=== PATIENT | male | born 1975 | race Two or more races ===

== ENCOUNTER 2016-11-30 09:51 | Inpatient (IN) | payer MEDICAID ==
[~2016-11-30] VITALS: Ht 165 cm; Wt 104.8 kg
[2016-11-30 10:42] VITALS: BP 112/70
[2016-11-30] MEDS ORDERED: cefOXitin Sod 2 GM in D5W 110 ML IVPB SCH (13:00)
[2016-11-30] MEDS ORDERED: Morphine Sulfate 4mg/ml Inj IVP ONE (13:00)
[2016-11-30] MEDS ORDERED: cefOXitin 2gm Inj ONE (13:09)
[2016-11-30 13:32] LABS: BASOPHILS % (AUTO) 0.4 % (0.0-2.0); EOSINOPHILS % (AUTO) 0.3 % (0.0-3.0); LYMPHOCYTES % (AUTO) 9.4 % (20.0-45.0); MEAN CORPUSCULAR HEMOGLOBIN 31.7 PG (27.0-31.0); MEAN CORPUSCULAR HGB CONC 33.5 G/DL (32.0-36.0); MEAN CORPUSCULAR VOLUME 95 FL (80-99); NEUTROPHILS % (AUTO) 74.9 % (45.0-75.0); PLATELET COUNT 160 K/UL (150-450); RED BLOOD COUNT 4.19 M/UL (4.70-6.10); RED CELL DISTRIBUTION WIDTH 11.2 % (11.6-14.8); WHITE BLOOD COUNT 17.4 K/UL (4.8-10.8)
[2016-11-30 13:39] LABS: INR 1.1 (0.9-1.1); PROTHROMBIN TIME 11.7 SEC (9.30-11.50)
[2016-11-30 13:43] VITALS: BP 114/68
[2016-11-30 13:43] LABS: ALBUMIN/GLOBULIN RATIO 1.1 (1.0-2.7); CALCIUM 9.3 mg/dL (8.6-10.2); CREATININE 1.8 mg/dL (0.7-1.2); GLOMERULAR FILTRATION RATE 42.2 mL/min (>60); POTASSIUM 4.9 mEQ/L (3.4-4.9); TOTAL PROTEIN 7.1 g/dL (6.6-8.7)
[2016-11-30] MEDS ORDERED: Nitroglycerin Subl 0.4mg tab (Bottle Of 25) SL PRN ×2 (13:45→17:45)
[2016-11-30] MEDS ORDERED: Vancomycin 1 GM in D5W 275 ML IVPB ONE (14:30)
[2016-11-30] MEDS ORDERED: metroNIDAZOLE 500mg 100 ML IVPB ONE (14:30)
--- NOTE | 2016-11-30 15:00 | Diagnostic Imaging Report ---
Clinical Indication: Pubic area pain Technique: No oral contrast utilized, per emergency room physician request IV administration nonionic contrast. Venous phase spiral acquisition obtained through the abdomen and pelvis. Multiplanar reconstructions were generated. Total dose length product 1136 mGycm. CTDIvol(s) 19 mGy. Dose reduction achieved using automated exposure control Comparison: None Findings: The skin and subcutaneous fat of the pubic area are essentially unremarkable. No evidence of significant infiltration of the subcutaneous fat noted. No abnormal fluid collections are evident. There is a right iliac fossa transplant kidney. This demonstrates moderate hydronephrosis. The transplant ureter is mildly dilated upstream, less so downstream. It opacifies normally. No focal abnormality is demonstrated. There are subcentimeter low-attenuation lesions which are too small to characterize. There are surgical clips seen surrounding the kidney. The bladder demonstrates an unusual elongated configuration. There is equivocal minimal bladder wall thickening. There is what appears to be a nonfunctioning dialysis graft in the right groin. Surgical clips are seen within the left groin. There is a small fat-containing left inguinal hernia. There is atrophy of the right rectus abdominis muscle, particularly inferiorly. There is relative slight atrophy of the right abdominal wall musculature as compared to the left. No evidence of diverticulosis or diverticulitis. The appendix is normal. No small bowel distention. No free or loculated intraperitoneal air or fluid is evident. The liver, gallbladder, bile ducts, pancreas, spleen adrenals are unremarkable. Both [place] kidneys are markedly atrophic. That on the right demonstrates innumerable cysts. There is a retroaortic left renal vein. No mesenteric retroperitoneal mass or adenopathy. No pelvic mass or adenopathy. Normal prostate and seminal vesicles. Lung bases demonstrate diffuse bilateral groundglass opacity. The heart is enlarged. The bones are unremarkable. Impression: No evidence of significant cutaneous/subcutaneous abnormality in the region to correlate with stated clinical history Right iliac fossa transplant kidney. This demonstrates moderate hydronephrosis, but no evidence of delayed opacification. Suspect stenosis is at the level of the distal transplant ureter Cardiomegaly. Bilateral basilar pulmonary groundglass opacities may represent mild pulmonary edema, although other etiologies are possible Equivocal minimal bladder wall thickening, mild cystitis not excludable Transplant renal subcentimeter low-attenuation lesions, too small to characterize, most likely benign simple cortical cysts Atrophic [place] kidneys. Multiple cysts in the right kidney, consistent with polycystic disease of uremia Evidence of old nonfunctioning right groin dialysis catheter Evidence of prior left groin surgery Right rectus abdominis muscle atrophy, probably related to prior surgeries The CT scanner at [facility] is accredited by the [employer] and the scans are performed using protocols designed to limit radiation exposure to as low as reasonably achievable to attain images of sufficient resolution adequate for diagnostic evaluation.
[2016-11-30 15:07] LABS: APPEARANCE,URINE CLEAR; KETONES,URINE NEGATIVE (NEGATIVE); LEUKOCYTE ESTERASE ,URINE 1+ (NEGATIVE); NITRITE,URINE NEGATIVE (NEGATIVE); PH,URINE 6 (4.5-8.0); PROTEIN,URINE 2+ (NEGATIVE); UROBILINOGEN,URINE NORMAL MG/DL (0.0-1.0)
[2016-11-30] MEDS ORDERED: Vancomycin 1gm inj IVPB ONE (15:29)
[2016-11-30 15:46] LABS: BACTERIA,URINE FEW /HPF
[2016-11-30 16:52] VITALS: BP 150/97
[2016-11-30] MEDS ORDERED: DuoNeb 0.5-3(2.5)mg/3ml neb HHN PRN (17:45)
[2016-11-30] MEDS ORDERED: Miralax 17gm pkt ORAL PRN (17:45)
[2016-11-30 18:47] VITALS: BP 145/96
[2016-11-30] MEDS ORDERED: levETIRAcetam 500 MG in D5W 110 ML IVPB ONE (19:15)
[2016-11-30] MEDS ORDERED: Valproate Sodium INJ 500 MG in D5W 55 ML IVPB ONE (19:15)
[2016-11-30 20:00] VITALS: BP 112/72
[2016-11-30] MEDS ORDERED: DEPAKOTE250 MG PO (20:08)
[2016-11-30] MEDS ORDERED: ONFI20 MG PO (20:08)
[2016-11-30] MEDS ORDERED: KEPPRA500 M4 ORAL (20:08)
[2016-11-30] MEDS ORDERED: KLONOPIN1 MG ORAL (20:10)
[2016-11-30] MEDS ORDERED: VIMPAT200 MG PO (20:10)
[2016-11-30] MEDS ORDERED: TENORMIN50 MG ORAL (20:10)
[2016-11-30] MEDS ORDERED: levETIRAcetam 500mg vial IV ONE (20:19)
--- NOTE | 2016-11-30 20:45 | Pre-op HX & Phy Repo 2 SIG ---
DATE OF ADMISSION: 11/30/2016 PREOPERATIVE CONSULTATION: REASON FOR CONSULTATION: Pain and drainage from the perirectal area. HISTORY OF PRESENT ILLNESS: This is a 41-year-old male, who presented with pain and swelling at the perirectal area. He stated that this time he has been having it for three to four days and it drained spontaneously, but he claimed that this is the fourth time it has happened and he has had one incision and drainage, but the rest has been spontaneous drainage. He denies any fever. PAST MEDICAL HISTORY: He denies allergies, asthma, diabetes, and cardiac diseases. He has a history of renal failure. He has history of kidney transplant 12 years ago. He has a history of seizure. PAST SURGICAL HISTORY: Include kidney transplant on the right side, incision and drainage of the perirectal abscess, and multiple AV fistulas. MEDICATIONS: Please see the medicine reconciliation form. SOCIAL HISTORY: This is a 41-year-old male, single without any children. Unemployed. Denies smoking and drinking. REVIEW OF SYSTEMS: Noncontributory. PHYSICAL EXAMINATION: GENERAL: The patient appeared to be a well-developed and well-nourished, 41-year-old male, moderately obese, in no acute distress. HEENT: Head is normocephalic and atraumatic. Eyes, pupils are equal, round, and reactive to light. Mouth is clear. NECK: No palpable thyromegaly or adenopathy. CHEST: Clear to auscultation and percussion. HEART: No gallop or murmur. S1 and S2 are within normal limits. ABDOMEN: Soft and flat. He has a scar of the kidney transplant. EXTREMITIES: He has a scar of the AV fistula on the left arm and both legs. PERINEUM: He has an opening of the abscess anterior to the anus. In this area, he has extensive scar tissue. ASSESSMENT: Infected fistula in ano. PLAN: The patient has been scheduled for incision and drainage of this infected fistula in ano. The risks and benefits have been explained to him, especially he has been notified about the diagnosis that he already has a fistula and treatments for eradication of the infection and after it heals up, he will required to have surgery for fistula in ano. He understood and granted consent. Siri Jackson M.D. DR: Roque JOB#: [id number] CC: LIVE
[2016-11-30] MEDS: NovoLOG Insulin Flexpen SUBQ SCH (21:00)
[2016-11-30] MEDS: Heparin 5000 units/ml inj SUBQ SCH (21:00)
--- NOTE | 2016-11-30 22:43 | Emergency Room Report ---
History of Present Illness General Chief Complaint: Skin Rash/Abscess Source: Patient, Medical Record (JH JIMENEZ PAleksandra) Present Illness HPI The patient is a 41-year-old male with a history of seizure disorder, kidney failure status post kidney transplant 12 years prior, and perirectal abscess presenting for possible recurrence of abscess. The patient states that he has had this infection 4 times in the past and this feels similar. He had a surgical incision and drainage 2 years prior and this is the first time that symptoms have returned since then. He noticed pain and swelling to the left buttock 3 days prior and then spontaneous drainage. He noticed white to yellow discharge with blood. Pain is now an 8/10 dull ache and does not radiate. Pain worse with touch. He denies any radiating pain. He denies other symptoms including constipation, diarrhea, nausea, vomiting, fever, chills, abdominal pain (JH JIMENEZ P.A.) Allergies: Coded Allergies: No Known Allergies (Unverified , 11/30/16) Patient History Past Medical History: see triage record Pertinent Family History: none Reviewed Nursing Documentation: PMH: Agreed, PSxH: Agreed (JH JIMENEZ P.AJosafat) Nursing Documentation-PMH Past Medical History: No History, Except For Hx Hypertension: Yes Hx Cancer: No Hx Gastrointestinal Problems: Yes - Rectal abscess Hx Seizures: Yes (JH JIMENEZ P.AJosafat) Review of Systems All Other Systems: negative except mentioned in HPI (JH JIMENEZ P.A.) Physical Exam Vital Signs Date Time Temp Pulse Resp B/P Pulse Ox O2 Delivery O2 Flow Rate FiO2 11/30/16 10:08 98.2 68 18 112/70 98 Room Air Sp02 EP Interpretation: reviewed, normal General Appearance: no apparent distress, alert, GCS 15, non-toxic Head: normocephalic, atraumatic Eyes: bilateral eye EOMI, bilateral eye PERRL, bilateral eye normal inspection ENT: hearing grossly normal, normal pharynx, no angioedema, normal voice Neck: full range of motion, supple/symm/no masses Respiratory: chest non-tender, lungs clear, normal breath sounds, speaking full sentences Cardiovascular #1: regular rate, rhythm, no edema Gastrointestinal: normal bowel sounds, non tender, soft, non-distended, no guarding, no rebound Rectal: normal rectal tone, other - L medial buttuck abscess with drainage and bleeding. Appears to be tracking to Anus Genitourinary: normal inspection, no CVA tenderness Musculoskeletal: back normal, gait/station normal, normal range of motion, non- tender Neurologic: alert, oriented x3, responsive, motor strength/tone normal, sensory intact, speech normal Psychiatric: judgement/insight normal, memory normal, mood/affect normal, no suicidal/homicidal ideation Skin: normal color, no rash, warm/dry, well hydrated Lymphatic: no adenopathy (JH JIMENEZ) Medical Decision Making PA Attestation Dr. Martin is my supervising physician. 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 No apparent distress There is an abscess of the left medial buttock with tracking to the anus. There is white discharge with bleeding. Tender to palpation. Normal rectal tone. No increased tenderness with rectal exam There is leukocytosis. CT unremarkable in regards to the infection The pt is given morphine for pain and is started on antibiotics. Patient's case has been discussed between Dr. Martin and admitting physician. The pt will be admitted and will have surgical I&D on 12/01. He is NPO. Pt agrees with this plan. Laboratory Tests Test 11/30/16 13:00 11/30/16 14:40 White Blood Count 17.4 K/UL (4.8-10.8) H Red Blood Count 4.19 M/UL (4.70-6.10) L Hemoglobin 13.3 G/DL (14.2-18.0) L Hematocrit 39.7 % (42.0-52.0) L Mean Corpuscular Volume 95 FL (80-99) Mean Corpuscular Hemoglobin 31.7 PG (27.0-31.0) H Mean Corpuscular Hemoglobin Concent 33.5 G/DL (32.0-36.0) Red Cell Distribution Width 11.2 % (11.6-14.8) L Platelet Count 160 K/UL (150-450) Mean Platelet Volume 8.0 FL (6.5-10.1) Neutrophils (%) (Auto) 74.9 % (45.0-75.0) Lymphocytes (%) (Auto) 9.4 % (20.0-45.0) L Monocytes (%) (Auto) 15.0 % (1.0-10.0) H Eosinophils (%) (Auto) 0.3 % (0.0-3.0) Basophils (%) (Auto) 0.4 % (0.0-2.0) Prothrombin Time 11.7 SEC (9.30-11.50) H Prothrombin Time INR 1.1 (0.9-1.1) PTT 35 SEC (23-33) H Sodium Level 136 mEQ/L (135-145) Potassium Level 4.9 mEQ/L (3.4-4.9) Chloride Level 95 mEQ/L (98-107) L Carbon Dioxide Level 27 mEQ/L (20-30) Anion Gap 14 (5-15) Blood Urea Nitrogen 24 mg/dL (7-23) H Creatinine 1.8 mg/dL (0.7-1.2) H Estimate Glomerular Filtration Rate 42.2 mL/min (>60) Glucose Level 111 mg/dL (74-106) H Calcium Level 9.3 mg/dL (8.6-10.2) Total Bilirubin 0.6 mg/dL (0.0-1.2) Aspartate Amino Transferase (AST) 10 U/L (5-40) Alanine Aminotransferase (ALT) 8 U/L (3-41) Alkaline Phosphatase 54 U/L (40-129) Total Protein 7.1 g/dL (6.6-8.7) Albumin 3.8 g/dL (3.5-5.2) Globulin 3.3 g/dL Albumin/Globulin Ratio 1.1 (1.0-2.7) Urine Color Yellow Urine Appearance Clear Urine pH 6 (4.5-8.0) Urine Specific [place] 1.010 (1.005-1.035) Urine Protein 2+ (NEGATIVE) H Urine Glucose (UA) Negative (NEGATIVE) Urine Ketones Negative (NEGATIVE) Urine Occult Blood 2+ (NEGATIVE) H Urine Nitrite Negative (NEGATIVE) Urine Bilirubin Negative (NEGATIVE) Urine Urobilinogen Normal MG/DL (0.0-1.0) Urine Leukocyte Esterase 1+ (NEGATIVE) H Urine RBC 5-10 /HPF (0 - 0) H Urine WBC 2-4 /HPF (0 - 0) Urine Squamous Epithelial Cells None /LPF (NONE/OCC) Urine Bacteria Few /HPF (NONE) Lab Results Impression CBC shows leukocytosis CMP has elevated BUN and creatinine Urinalysis unremarkable (JH JIMENEZ) ER Course Please see full evaluation by Mr. Jimenez. I examined this patient and agree with findings. (also nystagmus) Draining abscess R gluteal area. Antibiotics broadened. Anti seizure medicines ordered. Discussed with Dr. Spears and Dr. Jackson. (Eyal Martin M.D.) Chest X-Ray Diagnostic Results Chest X-Ray Ordered: No (JH JIMENEZ) CT/MRI/US Diagnostic Results CT/MRI/US Diagnostic Results : Imaging Test Ordered: Abd/pelvis Impression No evidence of significant cutaneous/subcutaneous abnormality in the region to correlate with stated clinical history (JH JIMENEZ) Last Vital Signs Date Time Temp Pulse Resp B/P Pulse Ox O2 Delivery O2 Flow Rate FiO2 11/30/16 20:35 72 17 145/96 98 Room Air 11/30/16 18:47 98.2 Status: improved (JH JIMENEZ) Status: improved (Eyal Mratin M.D.) Disposition: ADMITTED INPATIENT Condition: Stable Referrals: [facility],REFERRING (PCP) JH JIMENEZ Nov 30, 2016 22:43 Eyal Martin M.D. Dec 01, 2016 02:34
[2016-11-30] MEDS: Cefepime HCl 2 GM in D5W 110 ML IV SCH (23:01)
--- NOTE | 2016-11-30 23:02 | Consultation ---
Consult Note Consult Note ID CONSULT: Dict# [id number] Assessment/Plan ASSESSMENT: 41 y/o male with: // Recurrent perirectal abscess / fistula in ano SP spontaneous drainage - WCx pending, plan I&D 12/01 // Leukocytosis, afebrile // KT 2/2 PCKD // CKD3 // NKDA // Full Code PLAN: - continue empiric IV vancomycin, cefepime d# 1, add PO flagyl anaerobic coverage - I&D planned 12/01 - f/u cultures - monitor CBC, temperatures - monitor BMP - wound care Thanks! Will follow MICHAEL CERVANTES Nov 30, 2016 23:01
[2016-11-30] MEDS: metroNIDAZOLE 500mg tab ORAL SCH (23:30)
[2016-12-01] VITALS (10 sets, daily range): BP systolic 119–157; BP diastolic 70–90
--- NOTE | 2016-12-01 01:15 | Consultation ---
DATE OF CONSULTATION: 11/30/2016 INFECTIOUS DISEASE CONSULTATION CONSULTING PHYSICIAN: Damian Abernathy M.D. REQUESTING PHYSICIAN: Min Spears M.D. REASON FOR CONSULTATION: Perirectal abscess. HISTORY OF PRESENT ILLNESS: This is a 41-year-old male with a history of recurrent perirectal abscess. He is presently requiring previous I&D, admitted on 11/30/2016 with recurrence. He has been seen by surgery and is planned for incision and drainage tomorrow. Wound cultures pending. Associated leukocytosis. No fevers. He has been started on empiric IV vancomycin and cefepime and ID now consulted to assist in management. PAST MEDICAL HISTORY: 1. Hypertension. 2. Seizure disorder. 3. Chronic kidney disease. 4. Polycystic kidney disease. 5. Recurrent perirectal abscesses. PAST SURGICAL HISTORY: 1. Incision and drainage of perirectal abscess. 2. Kidney transplant. 3. Multiple arteriovenous fistulas. MEDICATIONS: 1. Vancomycin. 2. Cefepime. 3. Subcutaneous heparin. ALLERGIES: No known drug allergies. FAMILY HISTORY: Noncontributory. SOCIAL HISTORY: Denies tobacco, alcohol, or illicit drug abuse. REVIEW OF SYSTEMS: As per history present illness. Ten systems reviewed. All pertinent positives and negatives noted. PHYSICAL EXAMINATION: VITAL SIGNS: Maximum temperature 98.2, blood pressure 145/96, heart rate 70s, respiratory rate 17, and saturating 98% on room air. GENERAL: No apparent distress. Nontoxic appearing. CARDIOVASCULAR: Regular rate and rhythm. No murmurs. PULMONARY: Clear to auscultation bilaterally. GASTROINTESTINAL: Bowel sounds present. Soft, nondistended, and nontender. RECTAL: Erythema and tenderness. EXTREMITY: No edema. SKIN: No rash. NEUROLOGICAL: Alert and oriented x3, nonfocal. LABORATORY DATA: White blood cell count 17.4, hemoglobin 13.3, and platelets 160,000. Sodium 136, potassium 4.9, chloride 95, bicarbonate 27, BUN 24, and creatinine 1.8. Liver function tests within normal limits. MICROBIOLOGY: On 11/30/2016, perirectal wound culture pending. IMAGING: On 11/30/2016, CT abdomen and pelvis, no evidence of significant cutaneous or subcutaneous abnormality perirectally. Please refer to full report for full details. ASSESSMENT: 1. Recurrent perirectal abscess/fistula in ano, status post spontaneous drainage. Wound culture is pending. There is plan for incision and drainage tomorrow. 2. Leukocytosis, afebrile. 3. Kidney transplants secondary to polycystic kidney disease. 4. Chronic kidney disease stage 3. 5. No known drug allergies. 6. Full Code. PLAN: 1. Continue empiric IV vancomycin and cefepime day #1 and add oral Flagyl anaerobic coverage. 2. Incision and drainage is planned for tomorrow. 3. Follow up cultures. 4. Monitor CBC and temperatures. 5. Monitor BMP. 6. Wound care. Thank you. We will follow. Damian Abernathy M.D. DR: KAREL JOB#: [id number] CC: Min Spears M.D.; Fax#: [phone] Diop M.D; Fax#: [phone]
[2016-12-01] MEDS ORDERED: Vancomycin 1 GM in D5W 275 ML IVPB SCH (03:00)
[2016-12-01] MEDS: NovoLOG Insulin Flexpen SUBQ SCH ×4 (05:53→21:21)
[2016-12-01] MEDS: metroNIDAZOLE 500mg tab ORAL SCH ×3 (05:53→21:29)
[2016-12-01 07:16] LABS: BASOPHILS % (AUTO) 0.4 % (0.0-2.0); LYMPHOCYTES % (AUTO) 23.2 % (20.0-45.0); MEAN CORPUSCULAR HEMOGLOBIN 32.1 PG (27.0-31.0); MEAN CORPUSCULAR HGB CONC 33.4 G/DL (32.0-36.0); MEAN CORPUSCULAR VOLUME 96 FL (80-99); MEAN PLATELET VOLUME 7.9 FL (6.5-10.1); MONOCYTES % (AUTO) 11.9 % (1.0-10.0); NEUTROPHILS % (AUTO) 63.5 % (45.0-75.0); PLATELET COUNT 126 K/UL (150-450); RED BLOOD COUNT 3.57 M/UL (4.70-6.10); RED CELL DISTRIBUTION WIDTH 11.1 % (11.6-14.8); WHITE BLOOD COUNT 9.9 K/UL (4.8-10.8)
[2016-12-01 07:31] LABS: ALANINE AMINOTRANSFERASE 7 U/L (3-41); ALBUMIN/GLOBULIN RATIO 0.9 (1.0-2.7); ANION GAP 13 (5-15); ASPARTATE AMINO TRANSFERASE 11 U/L (5-40); CALCIUM 8.7 mg/dL (8.6-10.2); CARBON DIOXIDE 25 mEQ/L (20-30); CHLORIDE 101 mEQ/L (98-107); CREATININE 1.3 mg/dL (0.7-1.2); GLOMERULAR FILTRATION RATE > 60 mL/min (>60); HEMOLYSIS 27; POTASSIUM 4.8 mEQ/L (3.4-4.9); SODIUM 139 mEQ/L (135-145)
[2016-12-01] MEDS: Heparin 5000 units/ml inj SUBQ SCH ×2 (09:00→21:23)
[2016-12-01] MEDS ORDERED: Bacitracin 50000 Units Vial ONE (11:53)
[2016-12-01] MEDS ORDERED: Sterile Water Irrig 1000ml IRRIG ONE (12:00)
[2016-12-01] MEDS ORDERED: NS Irrig 1000ml ONE (12:00)
[2016-12-01] MEDS ORDERED: fentaNYL 100 mcg/2 mL IV ONE (12:00)
[2016-12-01] MEDS ORDERED: Propofol 10mg/ml 20ml IV ONE (12:00)
[2016-12-01] MEDS ORDERED: Midazolam 2mg/2ml Inj ONE (12:00)
--- NOTE | 2016-12-01 12:23 | Pre-Procedure Note/Attestation ---
Pre-Procedure Note/Attestation Complete Prior to Procedure Planned Procedure: not applicable Procedure Narrative: I & D of infected Fistula in ano Indications for Procedure Pre-Operative Diagnosis: Infected fistula in ano Attestation I attest that I discussed the nature of the procedure; its benefits; risks and complications; and alternatives (and the risks and benefits of such alternatives ), prior to the procedure, with the patient (or the patient's legal patient account representative). I attest that, if there was a reasonable possibility of needing a blood transfusion, the patient (or the patient's legal patient account representative) was given the [facility] standardized written summary, pursuant to the Hakeem Amy Blood Safety Act ([place] Health and Safety Code # 1645, as amended). I attest that I re-evaluated the patient just prior to the surgery and that there has been no change in the patient's H&P, except as documented below: SHAVONNE MEYER Dec 01, 2016 12:23
--- NOTE | 2016-12-01 12:55 | Anethesia Preoperative Eval ---
Anesthesia Pre-op PMH/ROS General Date of Evaluation: Dec 01, 2016 Time of Evaluation: 12:10 Anesthesiologist: Pino ASA Score: ASA 4 Mallampati Score Class I : Soft palate, uvula, fauces, pillars visible Class II: Soft palate, uvula, fauces visible Class III: Soft palate, base of uvula visible Class IV: Only hard plate visible Mallampati Classification: Class III Surgeon: Manuel Diagnosis: Perirectal absces Surgical Procedure: I&D of perirectal abscess Anesthesia History: none Family History: no anesthesia problems Allergies: Coded Allergies: No Known Allergies (Unverified , 11/30/16) Medications: see eMAR Past Medical History Cardiovascular: Denies: CAD, HTN, ID, arrhythmia, other, valve dz Pulmonary: Reports: TRICE, Denies: COPD, asthma, other Gastrointestinal/Genitourinary: Reports: ESRD - s/p kidney trasplant, GERD, Denies: CRI, other Neurologic/Psychiatric: Reports: depression/anxiety, other - seizers, Denies: CVA, TIA, dementia Endocrine: Reports: steroids, Denies: DM, hypothyroidism, other HEENT: Denies: [place] (L), [place] (R), cataract (L), cataract (R), glaucoma, other Hematology/Immune: Reports: anemia, Denies: DVT, bleeding disorder, other Musculoskeletal/Integumentary: Denies: DDD, DJD, OA, RA, edema, other Other: obesity PMH Narrative: as above PSxH Narrative: kidney transplant Anesthesia Pre-op Phys. Exam Physician Exam Last Vital Signs Date Time Temp Pulse Resp B/P Pulse Ox O2 Delivery O2 Flow Rate FiO2 12/01/16 11:38 98.2 15 119/72 98 Room Air 12/01/16 08:17 77 12/01/16 07:00 21 Constitutional: NAD Neurologic: CN 2-12 intact Cardiovascular: RRR, no M/R/G Respiratory: CTA Gastrointestinal: other - obesity Airway Exam Mallampati Score: Class III MO: limited Neck: srort ROM: limited Teeth: missing Dentures: no lower, no upper Anesthesia Pre-op A/P Labs Hematology Test 11/30/16 13:00 12/01/16 05:15 White Blood Count 17.4 K/UL (4.8-10.8) H 9.9 K/UL (4.8-10.8) Red Blood Count 4.19 M/UL (4.70-6.10) L 3.57 M/UL (4.70-6.10) L Hemoglobin 13.3 G/DL (14.2-18.0) L 11.4 G/DL (14.2-18.0) L Hematocrit 39.7 % (42.0-52.0) L 34.3 % (42.0-52.0) L Mean Corpuscular Volume 95 FL (80-99) 96 FL (80-99) Mean Corpuscular Hemoglobin 31.7 PG (27.0-31.0) H 32.1 PG (27.0-31.0) H Mean Corpuscular Hemoglobin Concent 33.5 G/DL (32.0-36.0) 33.4 G/DL (32.0-36.0) Red Cell Distribution Width 11.2 % (11.6-14.8) L 11.1 % (11.6-14.8) L Platelet Count 160 K/UL (150-450) 126 K/UL (150-450) L Mean Platelet Volume 8.0 FL (6.5-10.1) 7.9 FL (6.5-10.1) Neutrophils (%) (Auto) 74.9 % (45.0-75.0) 63.5 % (45.0-75.0) Lymphocytes (%) (Auto) 9.4 % (20.0-45.0) L 23.2 % (20.0-45.0) Monocytes (%) (Auto) 15.0 % (1.0-10.0) H 11.9 % (1.0-10.0) H Eosinophils (%) (Auto) 0.3 % (0.0-3.0) 1.0 % (0.0-3.0) Basophils (%) (Auto) 0.4 % (0.0-2.0) 0.4 % (0.0-2.0) Coagulation Test 11/30/16 13:00 Prothrombin Time 11.7 SEC (9.30-11.50) H Prothromb Time International Ratio 1.1 (0.9-1.1) Activated Partial Thromboplast Time 35 SEC (23-33) H Chemistry Test 11/30/16 13:00 12/01/16 05:15 Sodium Level 136 mEQ/L (135-145) 139 mEQ/L (135-145) Potassium Level 4.9 mEQ/L (3.4-4.9) 4.8 mEQ/L (3.4-4.9) Chloride Level 95 mEQ/L (98-107) L 101 mEQ/L (98-107) Carbon Dioxide Level 27 mEQ/L (20-30) 25 mEQ/L (20-30) Anion Gap 14 (5-15) 13 (5-15) Blood Urea Nitrogen 24 mg/dL (7-23) H 24 mg/dL (7-23) H Creatinine 1.8 mg/dL (0.7-1.2) H 1.3 mg/dL (0.7-1.2) H Estimat Glomerular Filtration Rate 42.2 mL/min (>60) > 60 mL/min (>60) Glucose Level 111 mg/dL (74-106) H 88 mg/dL (74-106) Calcium Level 9.3 mg/dL (8.6-10.2) 8.7 mg/dL (8.6-10.2) Total Bilirubin 0.6 mg/dL (0.0-1.2) 0.3 mg/dL (0.0-1.2) Aspartate Amino Transf (AST/SGOT) 10 U/L (5-40) 11 U/L (5-40) Alanine Aminotransferase (ALT/SGPT) 8 U/L (3-41) 7 U/L (3-41) Alkaline Phosphatase 54 U/L (40-129) 49 U/L (40-129) Total Protein 7.1 g/dL (6.6-8.7) 6.0 g/dL (6.6-8.7) L Albumin 3.8 g/dL (3.5-5.2) 2.9 g/dL (3.5-5.2) L Globulin 3.3 g/dL 3.1 g/dL Albumin/Globulin Ratio 1.1 (1.0-2.7) 0.9 (1.0-2.7) L Risk Assessment & Plan Assessment: ASA3 Plan: GA with LMA Status Change Before Surgery: No Pre-Antibiotics Drug: Ancef 1gr. Given Within 1 Hr of Incision: Yes Time Given: 12:20 GLADIS SEN M.D. Dec 01, 2016 12:55
--- NOTE | 2016-12-01 13:11 | Immediate Post-Op Evaluation ---
Immediate Post-Op Evalulation Immediate Post-Op Evalulation Procedure: I&D of perirectal abscess Date of Evaluation: Dec 01, 2016 Time of Evaluation: 13:10 IV Fluids: 300 Blood Products: none Estimated Blood Loss: min Urinary Output: none Blood Pressure Systolic: 137 Blood Pressure Diastolic: 86 Pulse Rate: 75 Respiratory Rate: 22 O2 Sat by Pulse Oximetry: 98 Temperature (Fahrenheit): 97.6 Pain Score (1-10): 2 Nausea: No Vomiting: No Complications none Patient Status: reacts, patent, none Hydration Status: adequate GLADIS SEN M.D. Dec 01, 2016 13:11
[2016-12-01] MEDS ORDERED: DiphenhydrAMINE 50mg/ml Inj IVP PRN (13:15)
[2016-12-01] MEDS ORDERED: Midazolam 2mg/2ml Inj IVP PRN (13:15)
[2016-12-01] MEDS ORDERED: Hydromorphone 0.5mg/0.5ml inj IVP PRN (13:15)
--- NOTE | 2016-12-01 13:16 | Brief Operative Note ---
Immediate Post Operative Note Operative Note Pre-op Diagnosis: Infected fistula in ano Procedure: I & D of infected fistula in ano Post-op Diagnosis: same as pre-op Findings: consistent w/pre-op dx studies Surgeon: MD Giovanna Ratoprinter: none Anesthesiologist: Dr. Pringle Anesthesia: general Specimen: yes Complications: none Condition: stable Estimated Blood Loss: minimal Drains: none Packing: Betadine soaked sponge Implant(s) used?: SHAVONNE [place] Dec 01, 2016 13:16
[2016-12-01] MEDS ORDERED: DuoNeb 0.5-3(2.5)mg/3ml neb HHN PRN (13:45)
[2016-12-01] MEDS ORDERED: Piperacillin/Tazobactam 3.375 GM in D5W 110 ML IVPB SCH (14:00)
[2016-12-01] MEDS ORDERED: Depakote 500mg tab ORAL SCH (14:00)
--- NOTE | 2016-12-01 14:00 | 48 Hour Post Anesthesia Eval ---
Post Anesthesia Evaluation Procedure: I&D of perirectal abscess Date of Evaluation: Dec 01, 2016 Time of Evaluation: 13:59 Blood Pressure Systolic: 136 0: 69 Pulse Rate: 72 Respiratory Rate: 20 Temperature (Fahrenheit): 97.3 O2 Sat by Pulse Oximetry: 99 Airway: patent Nausea: No Vomiting: No Pain Intensity: 2 Hydration Status: adequate Cardiopulmonary Status: stable Mental Status/LOC: patient returned to baseline Follow-up Care/Observations: n/a Post-Anesthesia Complications: none Follow-up care needed: N/A GLADIS SEN M.D. Dec 01, 2016 14:00
[2016-12-01] MEDS: Morphine Sulfate 2mg/ml Inj IVP PRN ×2 (14:02→21:17)
[2016-12-01] MEDS: Depakote 500mg tab ORAL SCH ×2 (14:06→21:10)
[2016-12-01] MEDS ORDERED: D5 1/2NS w/KCl 20mEq 1,000 ML IV SCH (14:30)
[2016-12-01] MEDS ORDERED: PREDNISONE5 M4 PO (17:31)
[2016-12-01] MEDS ORDERED: PROGRAF0.5 MG PO (17:31)
[2016-12-01] MEDS ORDERED: CELLCEPT250 MG ORAL (17:31)
--- NOTE | 2016-12-01 17:54 | Infectious Diseases Prog Note ---
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 WBC normalized SP I&D, pain controlled Objective Vital Signs Last 24 Hour Vital Signs Date Time Temp Pulse Resp B/P Pulse Ox O2 Delivery O2 Flow Rate FiO2 12/01/16 16:12 97.7 75 16 123/83 96 Room Air 12/01/16 14:00 72 20 99 12/01/16 13:25 98.0 74 20 140/86 100 Nasal Cannula 3.0 12/01/16 13:15 77 20 157/86 100 Nasal Cannula 3.0 12/01/16 13:11 75 22 98 12/01/16 13:10 74 20 145/89 100 Simple Mask 8.0 12/01/16 13:05 97.9 81 20 137/90 100 Simple Mask 8.0 12/01/16 11:38 98.2 15 119/72 98 Room Air 12/01/16 08:17 98.4 77 15 121/80 99 Room Air 12/01/16 07:00 77 18 Room Air 21 12/01/16 04:00 97.7 76 18 122/78 96 Room Air 12/01/16 00:00 97.2 74 20 120/70 97 Room Air 11/30/16 20:35 72 17 145/96 98 Room Air 11/30/16 20:00 97.7 70 20 112/72 96 Room Air 11/30/16 18:47 98.2 72 17 145/96 98 Room Air Height (Feet): 5 Height (Inches): 4.96 Weight (Pounds): 231 General Appearance: no acute distress Respiratory/Chest: no respiratory distress Cardiovascular: normal rate, regular rhythm Abdomen: normal bowel sounds, soft, non tender, non distended Laboratory Tests Test 12/01/16 05:15 White Blood Count 9.9 K/UL (4.8-10.8) Red Blood Count 3.57 M/UL (4.70-6.10) L Hemoglobin 11.4 G/DL (14.2-18.0) L Hematocrit 34.3 % (42.0-52.0) L Mean Corpuscular Volume 96 FL (80-99) Mean Corpuscular Hemoglobin 32.1 PG (27.0-31.0) H Mean Corpuscular Hemoglobin Concent 33.4 G/DL (32.0-36.0) Red Cell Distribution Width 11.1 % (11.6-14.8) L Platelet Count 126 K/UL (150-450) L Mean Platelet Volume 7.9 FL (6.5-10.1) Neutrophils (%) (Auto) 63.5 % (45.0-75.0) Lymphocytes (%) (Auto) 23.2 % (20.0-45.0) Monocytes (%) (Auto) 11.9 % (1.0-10.0) H Eosinophils (%) (Auto) 1.0 % (0.0-3.0) Basophils (%) (Auto) 0.4 % (0.0-2.0) Sodium Level 139 mEQ/L (135-145) Potassium Level 4.8 mEQ/L (3.4-4.9) Chloride Level 101 mEQ/L (98-107) Carbon Dioxide Level 25 mEQ/L (20-30) Anion Gap 13 (5-15) Blood Urea Nitrogen 24 mg/dL (7-23) H Creatinine 1.3 mg/dL (0.7-1.2) H Estimat Glomerular Filtration Rate > 60 mL/min (>60) Glucose Level 88 mg/dL (74-106) Calcium Level 8.7 mg/dL (8.6-10.2) Total Bilirubin 0.3 mg/dL (0.0-1.2) Aspartate Amino Transf (AST/SGOT) 11 U/L (5-40) Alanine Aminotransferase (ALT/SGPT) 7 U/L (3-41) Alkaline Phosphatase 49 U/L (40-129) Total Protein 6.0 g/dL (6.6-8.7) L Albumin 2.9 g/dL (3.5-5.2) L Globulin 3.1 g/dL Albumin/Globulin Ratio 0.9 (1.0-2.7) L Current Medications Medications (Trade) Dose Ordered Sig/Catrachito Route PRN Reason Start Time Stop Time Status Last Admin Dose Admin Acetaminophen (Tylenol) 650 mg Q4H PRN ORAL fever 11/30/16 17:45 12/30/16 17:44 Albuterol/ Ipratropium (DuoNeb 0.5-3(2.5)mg/3ml) 3 ml Q4H PRN HHN Shortness of Breath 12/01/16 13:45 12/06/16 13:44 Atenolol (Tenormin) 50 mg Q12HR ORAL 12/01/16 21:00 12/31/16 20:59 Cefepime HCl/ Dextrose (Maxipime/D5W) 110 ml @ 220 mls/hr Q24H IV 11/30/16 21:00 12/07/16 20:59 11/30/16 23:01 Clonazepam (KlonoPIN) 1 mg Q12HR ORAL 12/01/16 21:00 12/08/16 20:59 Dextrose (Dextrose 50%) STAT PRN IV Hypoglycemia 11/30/16 17:45 12/30/16 17:44 Dextrose/ Electrolytes (D5 0.45%NS W/ KCl 20mEq) 1,000 ml @ 20 mls/hr Q24H IV 12/01/16 14:30 12/31/16 14:29 12/01/16 16:23 Divalproex Sodium (Depakote) 500 mg Q8HR ORAL 12/01/16 14:00 12/31/16 13:59 12/01/16 14:06 Heparin Sodium (Porcine) (Heparin 5000 units/ml) 5,000 units EVERY 12 HOURS SUBQ 12/01/16 21:00 12/31/16 20:59 Insulin Aspart (NovoLOG) BEFORE MEALS AND HS SUBQ 12/01/16 16:30 12/31/16 16:29 Lacosamide (Vimpat) 200 mg Q12HR ORAL 12/01/16 21:00 12/31/16 20:59 Levetiracetam (Keppra) 500 mg EVERY 12 HOURS ORAL 12/01/16 21:00 12/31/16 20:59 Metronidazole (Flagyl) 500 mg Q8HR ORAL 11/30/16 23:30 12/07/16 23:29 12/01/16 14:02 Morphine Sulfate (Morphine Sulfate) 2 mg Q4H PRN IVP Moderate Pain (Pain Scale 4-6) 11/30/16 17:45 12/07/16 17:44 12/01/16 14:02 Mycophenolate Mofetil (Cellcept) 250 mg EVERY 12 HOURS ORAL 12/01/16 21:00 12/31/16 20:59 Nitroglycerin (Ntg) 0.4 mg Q5MIN PRN SL Prn Chest Pain 11/30/16 13:45 12/31/16 13:44 Ondansetron HCl (Zofran) 4 mg Q6H PRN IVP Nausea & Vomiting 11/30/16 17:45 12/30/16 17:44 Polyethylene Glycol (Miralax) 17 gm DAILYPRN PRN ORAL Constipation 11/30/16 17:45 12/30/16 17:44 Prednisone (predniSONE) 5 mg DAILY ORAL 12/01/16 21:00 12/31/16 20:59 Tacrolimus (Prograf) 0.5 mg EVERY 12 HOURS ORAL 12/01/16 21:00 12/31/16 20:59 Temazepam 15 mg 15 mg HSPRN PRN ORAL Insomnia 12/01/16 20:00 12/08/16 19:59 MICHAEL CERVANTES 10, 2017 17:54
--- NOTE | 2016-12-01 19:45 | Operative Note - Dictated ---
DATE OF OPERATION: 12/01/2016 PREOPERATIVE DIAGNOSIS: Infected [id number]. POSTOPERATIVE DIAGNOSIS: Infected [id number]. OPERATION: Debridement and irrigation of the infected [id number]. SURGEON: Siri Jackson M.D. COMPLICATIONS: None. RESEARCH AFFILIATE: None. ANESTHESIA: General with laryngeal mask. ANESTHESIOLOGIST: Jose Pringle M.D. INDICATIONS: This is a 41-year-old, male with a history of uzgllko-eb-[id number] who presented with pain and drainage from the perirectal area. He stated that he has had abscess at the perirectal area for four times and one time, it has been drained, but three other times, it has spontaneously drained. It should be noted that the patient has a history of kidney transplant and he is on medication for the transplant. DESCRIPTION OF PROCEDURE: The patient was placed supine on the operating table and after general anesthesia with laryngeal mask, he was placed in lithotomy position and the perineum was properly prepped and draped. Exploration was performed, which showed an opening anterior to the rectum with a very large cavity. This cavity was explored with finger. It extended 2-1/2 inches parallel to the anal canal. The abscess has already drained and so, the cavity was unroofed with removing the skin and subcutaneous tissue. The loculations were digitally opened up, and the cavity was irrigated with antibiotic solution and then, it was packed with Betadine-soaked sponge. Obviously, the patient has a deep fistula in ano, and at this time, I cannot find connection to the rectum. He would require conservative treatment at this time, and after the fistula is established and matured, he will require a fistulectomy and this has been explained to the patient prior to the operation. The patient tolerated the procedure very well and was transferred to recovery room in stable condition and extubated. The sponge and needle count correct. ESTIMATED BLOOD LOSS: 10 mL. CONDITION OF THE PATIENT AT THE END OF PROCEDURE: Stable. Siri Jackson M.D. DR: MARYANN JOB#: [id number] CC:
[2016-12-01] MEDS: PredniSONE 5mg tab ORAL SCH (21:00)
[2016-12-01] MEDS: Cefepime HCl 2 GM in D5W 110 ML IV SCH (21:09)
[2016-12-01] MEDS: Mycophenolate 250mg cap ORAL SCH (21:10)
[2016-12-01] MEDS: Lacosamide 100 MG TABLET ORAL SCH (22:01)
[2016-12-01] MEDS: ONFI 20 MG ORAL SCH (22:01)
--- NOTE | 2016-12-01 22:43 | History and Physical ---
History of Present Illness General Reason for Hospitalization: Skin Rash/Abscess Present Illness Allergies: Coded Allergies: No Known Allergies (Unverified , 11/30/16) Medication History Scheduled Atenolol* (Tenormin*), 50 MG ORAL BID, (Reported) Clobazam (Onfi), 20 MG PO BID, (Reported) Clonazepam* (Klonopin*), 1 MG ORAL BID, (Reported) Divalproex Sodium* (Depakote*), 500 MG PO THREE TIMES A DAY, (Reported) Lacosamide (Vimpat), 200 MG PO BID, (Reported) Levetiracetam (Keppra), 500 MG ORAL EVERY 12 HOURS, (Reported) Mycophenolate Mofetil (Cellcept), 250 MG ORAL EVERY 12 HOURS, (Reported) Prednisone (Prednisone), 5 MG PO DAILY, (Reported) Tacrolimus (Prograf), 0.5 MG PO BID, (Reported) Patient History Healthcare decision maker Resuscitation status Full Code Advanced Directive on File Physical Exam Last 24 Hour Vital Signs Date Time Temp Pulse Resp B/P Pulse Ox O2 Delivery O2 Flow Rate FiO2 12/01/16 21:10 75 128/73 12/01/16 20:18 75 16 Room Air 21 12/01/16 20:00 98.2 81 18 128/73 100 Room Air 12/01/16 16:12 97.7 75 16 123/83 96 Room Air 12/01/16 14:00 72 20 99 12/01/16 13:25 98.0 74 20 140/86 100 Nasal Cannula 3.0 12/01/16 13:15 77 20 157/86 100 Nasal Cannula 3.0 12/01/16 13:11 75 22 98 12/01/16 13:10 74 20 145/89 100 Simple Mask 8.0 12/01/16 13:05 97.9 81 20 137/90 100 Simple Mask 8.0 12/01/16 11:38 98.2 15 119/72 98 Room Air 12/01/16 08:17 98.4 77 15 121/80 99 Room Air 12/01/16 07:00 77 18 Room Air 21 12/01/16 04:00 97.7 76 18 122/78 96 Room Air 12/01/16 00:00 97.2 74 20 120/70 97 Room Air Intake and Output 11/30/16 12/01/16 19:00 07:00 Intake Total 240 ml 560.0 ml Balance 240 ml 560.0 ml Intake Oral 240 ml IV Total 560.0 ml # Voids 2 Laboratory Tests Test 12/01/16 05:15 White Blood Count 9.9 K/UL (4.8-10.8) Red Blood Count 3.57 M/UL (4.70-6.10) L Hemoglobin 11.4 G/DL (14.2-18.0) L Hematocrit 34.3 % (42.0-52.0) L Mean Corpuscular Volume 96 FL (80-99) Mean Corpuscular Hemoglobin 32.1 PG (27.0-31.0) H Mean Corpuscular Hemoglobin Concent 33.4 G/DL (32.0-36.0) Red Cell Distribution Width 11.1 % (11.6-14.8) L Platelet Count 126 K/UL (150-450) L Mean Platelet Volume 7.9 FL (6.5-10.1) Neutrophils (%) (Auto) 63.5 % (45.0-75.0) Lymphocytes (%) (Auto) 23.2 % (20.0-45.0) Monocytes (%) (Auto) 11.9 % (1.0-10.0) H Eosinophils (%) (Auto) 1.0 % (0.0-3.0) Basophils (%) (Auto) 0.4 % (0.0-2.0) Sodium Level 139 mEQ/L (135-145) Potassium Level 4.8 mEQ/L (3.4-4.9) Chloride Level 101 mEQ/L (98-107) Carbon Dioxide Level 25 mEQ/L (20-30) Anion Gap 13 (5-15) Blood Urea Nitrogen 24 mg/dL (7-23) H Creatinine 1.3 mg/dL (0.7-1.2) H Estimat Glomerular Filtration Rate > 60 mL/min (>60) Glucose Level 88 mg/dL (74-106) Calcium Level 8.7 mg/dL (8.6-10.2) Total Bilirubin 0.3 mg/dL (0.0-1.2) Aspartate Amino Transf (AST/SGOT) 11 U/L (5-40) Alanine Aminotransferase (ALT/SGPT) 7 U/L (3-41) Alkaline Phosphatase 49 U/L (40-129) Total Protein 6.0 g/dL (6.6-8.7) L Albumin 2.9 g/dL (3.5-5.2) L Globulin 3.1 g/dL Albumin/Globulin Ratio 0.9 (1.0-2.7) L Height (Feet): 5 Height (Inches): 4.96 Weight (Pounds): 231 Medications Current Medications Medications (Trade) Dose Ordered Sig/Catrachito Route PRN Reason Start Time Stop Time Status Last Admin Dose Admin Acetaminophen (Tylenol) 650 mg Q4H PRN ORAL fever 11/30/16 17:45 12/30/16 17:44 Albuterol/ Ipratropium (DuoNeb 0.5-3(2.5)mg/3ml) 3 ml Q4H PRN HHN Shortness of Breath 12/01/16 13:45 12/06/16 13:44 Atenolol (Tenormin) 50 mg Q12HR ORAL 12/01/16 21:00 12/31/16 20:59 12/01/16 21:10 Cefepime HCl/ Dextrose (Maxipime/D5W) 110 ml @ 220 mls/hr Q24H IV 11/30/16 21:00 12/07/16 20:59 12/01/16 21:09 Clonazepam (KlonoPIN) 1 mg Q12HR ORAL 12/01/16 21:00 12/08/16 20:59 12/01/16 21:11 Dextrose (Dextrose 50%) STAT PRN IV Hypoglycemia 11/30/16 17:45 12/30/16 17:44 Dextrose/ Electrolytes (D5 0.45%NS W/ KCl 20mEq) 1,000 ml @ 20 mls/hr Q24H IV 12/01/16 14:30 12/31/16 14:29 12/01/16 16:23 Divalproex Sodium (Depakote) 500 mg Q8HR ORAL 12/01/16 14:00 12/31/16 13:59 12/01/16 21:10 Heparin Sodium (Porcine) (Heparin 5000 units/ml) 5,000 units EVERY 12 HOURS SUBQ 12/01/16 21:00 12/31/16 20:59 12/01/16 21:23 Insulin Aspart (NovoLOG) BEFORE MEALS AND HS SUBQ 12/01/16 16:30 12/31/16 16:29 12/01/16 21:21 Lacosamide (Vimpat) 200 mg Q12HR ORAL 12/01/16 21:00 12/31/16 20:59 12/01/16 22:01 Levetiracetam (Keppra) 500 mg EVERY 12 HOURS ORAL 12/01/16 21:00 12/31/16 20:59 12/01/16 21:29 Metronidazole (Flagyl) 500 mg Q8HR ORAL 11/30/16 23:30 12/07/16 23:29 12/01/16 21:29 Morphine Sulfate (Morphine Sulfate) 2 mg Q4H PRN IVP Moderate Pain (Pain Scale 4-6) 11/30/16 17:45 12/07/16 17:44 12/01/16 21:17 Mycophenolate Mofetil (Cellcept) 250 mg EVERY 12 HOURS ORAL 12/01/16 21:00 12/31/16 20:59 12/01/16 21:10 Nitroglycerin (Ntg) 0.4 mg Q5MIN PRN SL Prn Chest Pain 11/30/16 13:45 12/31/16 13:44 Ondansetron HCl (Zofran) 4 mg Q6H PRN IVP Nausea & Vomiting 11/30/16 17:45 12/30/16 17:44 Patient Own Medication (Patient's Own Med) 1 ea Q12HR ORAL 12/01/16 22:00 12/31/16 21:59 12/01/16 22:01 Polyethylene Glycol (Miralax) 17 gm DAILYPRN PRN ORAL Constipation 11/30/16 17:45 12/30/16 17:44 Prednisone (predniSONE) 5 mg DAILY ORAL 12/01/16 21:00 12/31/16 20:59 Tacrolimus (Prograf) 0.5 mg EVERY 12 HOURS ORAL 12/01/16 21:00 12/31/16 20:59 12/01/16 21:09 Temazepam 15 mg 15 mg HSPRN PRN ORAL Insomnia 12/01/16 20:00 12/08/16 19:59 LETY JO Dec 01, 2016 22:43
[2016-12-02] VITALS (7 sets, daily range): BP systolic 115–140; BP diastolic 68–91
[2016-12-02] MEDS: metroNIDAZOLE 500mg tab ORAL SCH ×3 (06:28→21:01)
[2016-12-02] MEDS: Depakote 500mg tab ORAL SCH ×3 (06:28→20:57)
[2016-12-02] MEDS: NovoLOG Insulin Flexpen SUBQ SCH ×4 (06:30→20:58)
[2016-12-02] MEDS: Morphine Sulfate 2mg/ml Inj IVP PRN ×3 (06:34→16:35)
[2016-12-02 07:32] LABS: BASOPHILS % (AUTO) 0.7 % (0.0-2.0); EOSINOPHILS % (AUTO) 2.7 % (0.0-3.0); LYMPHOCYTES % (AUTO) 29.8 % (20.0-45.0); MEAN CORPUSCULAR HEMOGLOBIN 31.9 PG (27.0-31.0); MEAN CORPUSCULAR HGB CONC 33.4 G/DL (32.0-36.0); MEAN CORPUSCULAR VOLUME 96 FL (80-99); MEAN PLATELET VOLUME 7.4 FL (6.5-10.1); MONOCYTES % (AUTO) 12.9 % (1.0-10.0); PLATELET COUNT 139 K/UL (150-450); WHITE BLOOD COUNT 7.7 K/UL (4.8-10.8)
[2016-12-02 08:11] LABS: ALANINE AMINOTRANSFERASE 13 U/L (3-41); ALBUMIN/GLOBULIN RATIO 1.3 (1.0-2.7); ANION GAP 15 (5-15); ASPARTATE AMINO TRANSFERASE 21 U/L (5-40); CALCIUM 8.4 mg/dL (8.6-10.2); CARBON DIOXIDE 26 mEQ/L (20-30); CHLORIDE 99 mEQ/L (98-107); CREATININE 1.2 mg/dL (0.7-1.2); GLOMERULAR FILTRATION RATE > 60 mL/min (>60); HEMOLYSIS 4; MAGNESIUM 1.8 mg/dL (1.7-2.5); PHOSPHORUS 3.5 mg/dL (2.5-4.8); POTASSIUM 4.6 mEQ/L (3.4-4.9); SODIUM 140 mEQ/L (135-145); TOTAL PROTEIN 5.4 g/dL (6.6-8.7)
[2016-12-02] MEDS: Mycophenolate 250mg cap ORAL SCH ×3 (09:00→20:55)
[2016-12-02] MEDS: PredniSONE 5mg tab ORAL SCH (09:23)
[2016-12-02] MEDS: Lacosamide 100 MG TABLET ORAL SCH ×2 (09:23→20:55)
[2016-12-02] MEDS: Heparin 5000 units/ml inj SUBQ SCH ×2 (09:31→21:11)
--- NOTE | 2016-12-02 10:10 | Infectious Diseases Prog Note ---
Assessment/Plan Assessment/Plan A; Perirectal abscess/fistula Acute renal failure S/P renal transplant Hydronephrosis HPN P: continue Cefepime & Flagyl Will f/u cultures Subjective ROS Limited/Unobtainable: No Constitutional: Reports: no symptoms Respiratory: Reports: no symptoms Gastrointestinal/Abdominal: Reports: no symptoms Genitourinary: Reports: no symptoms Allergies: Coded Allergies: No Known Allergies (Unverified , 11/30/16) Objective Vital Signs Last 24 Hour Vital Signs Date Time Temp Pulse Resp B/P Pulse Ox O2 Delivery O2 Flow Rate FiO2 12/02/16 09:23 66 115/68 12/02/16 08:11 66 16 Room Air 21 12/02/16 08:09 97.0 67 20 115/68 96 Room Air 12/02/16 04:00 97.2 63 18 119/73 95 Room Air 12/02/16 00:00 98.2 73 18 130/91 96 Room Air 12/01/16 21:10 75 128/73 12/01/16 20:18 75 16 Room Air 21 12/01/16 20:00 98.2 81 18 128/73 100 Room Air 12/01/16 16:12 97.7 75 16 123/83 96 Room Air 12/01/16 14:00 72 20 99 12/01/16 13:25 98.0 74 20 140/86 100 Nasal Cannula 3.0 12/01/16 13:15 77 20 157/86 100 Nasal Cannula 3.0 12/01/16 13:11 75 22 98 12/01/16 13:10 74 20 145/89 100 Simple Mask 8.0 12/01/16 13:05 97.9 81 20 137/90 100 Simple Mask 8.0 12/01/16 11:38 98.2 15 119/72 98 Room Air Height (Feet): 5 Height (Inches): 4.96 Weight (Pounds): 231 General Appearance: no acute distress HEENT: mucous membranes moist Respiratory/Chest: lungs clear Cardiovascular: normal rate Abdomen: soft, non tender Neurologic/Psychiatric: alert, oriented x 3, responsive Microbiology Date/Time Source Procedure Growth Status 11/30/16 22:00 Other Gram Stain - Final Resulted 11/30/16 22:00 Wound Culture - Preliminary Gram Negative Jluis Resulted Laboratory Tests Test 6/11/17 05:20 White Blood Count 7.7 K/UL (4.8-10.8) Red Blood Count 3.60 M/UL (4.70-6.10) L Hemoglobin 11.5 G/DL (14.2-18.0) L Hematocrit 34.5 % (42.0-52.0) L Mean Corpuscular Volume 96 FL (80-99) Mean Corpuscular Hemoglobin 31.9 PG (27.0-31.0) H Mean Corpuscular Hemoglobin Concent 33.4 G/DL (32.0-36.0) Red Cell Distribution Width 11.0 % (11.6-14.8) L Platelet Count 139 K/UL (150-450) L Mean Platelet Volume 7.4 FL (6.5-10.1) Neutrophils (%) (Auto) 54.0 % (45.0-75.0) Lymphocytes (%) (Auto) 29.8 % (20.0-45.0) Monocytes (%) (Auto) 12.9 % (1.0-10.0) H Eosinophils (%) (Auto) 2.7 % (0.0-3.0) Basophils (%) (Auto) 0.7 % (0.0-2.0) Sodium Level 140 mEQ/L (135-145) Potassium Level 4.6 mEQ/L (3.4-4.9) Chloride Level 99 mEQ/L (98-107) Carbon Dioxide Level 26 mEQ/L (20-30) Anion Gap 15 (5-15) Blood Urea Nitrogen 19 mg/dL (7-23) Creatinine 1.2 mg/dL (0.7-1.2) Estimat Glomerular Filtration Rate > 60 mL/min (>60) Glucose Level 85 mg/dL (74-106) Calcium Level 8.4 mg/dL (8.6-10.2) L Phosphorus Level 3.5 mg/dL (2.5-4.8) Magnesium Level 1.8 mg/dL (1.7-2.5) Total Bilirubin 0.3 mg/dL (0.0-1.2) Aspartate Amino Transf (AST/SGOT) 21 U/L (5-40) Alanine Aminotransferase (ALT/SGPT) 13 U/L (3-41) Alkaline Phosphatase 48 U/L (40-129) Total Protein 5.4 g/dL (6.6-8.7) L Albumin 3.1 g/dL (3.5-5.2) L Globulin 2.3 g/dL Albumin/Globulin Ratio 1.3 (1.0-2.7) Current Medications Medications (Trade) Dose Ordered Sig/Catrachito Route PRN Reason Start Time Stop Time Status Last Admin Dose Admin Acetaminophen (Tylenol) 650 mg Q4H PRN ORAL fever 11/30/16 17:45 12/30/16 17:44 Albuterol/ Ipratropium (DuoNeb 0.5-3(2.5)mg/3ml) 3 ml Q4H PRN HHN Shortness of Breath 12/01/16 13:45 12/06/16 13:44 Atenolol (Tenormin) 50 mg Q12HR ORAL 12/01/16 21:00 12/31/16 20:59 12/02/16 09:23 Cefepime HCl/ Dextrose (Maxipime/D5W) 110 ml @ 220 mls/hr Q24H IV 11/30/16 21:00 12/07/16 20:59 12/01/16 21:09 Clonazepam (KlonoPIN) 1 mg Q12HR ORAL 12/01/16 21:00 12/08/16 20:59 12/02/16 09:22 Dextrose (Dextrose 50%) STAT PRN IV Hypoglycemia 11/30/16 17:45 12/30/16 17:44 Dextrose/ Electrolytes (D5 0.45%NS W/ KCl 20mEq) 1,000 ml @ 20 mls/hr Q24H IV 12/01/16 14:30 12/31/16 14:29 12/01/16 16:23 Divalproex Sodium (Depakote) 500 mg DAILY ORAL 12/02/16 10:15 01/01/17 10:14 Divalproex Sodium (Depakote) 1,000 mg BEDTIME ORAL 12/02/16 21:00 01/01/17 20:59 Heparin Sodium (Porcine) (Heparin 5000 units/ml) 5,000 units EVERY 12 HOURS SUBQ 12/01/16 21:00 12/31/16 20:59 12/02/16 09:31 Insulin Aspart (NovoLOG) BEFORE MEALS AND HS SUBQ 12/01/16 16:30 12/31/16 16:29 12/01/16 21:21 Lacosamide (Vimpat) 200 mg Q12HR ORAL 12/01/16 21:00 12/31/16 20:59 12/02/16 09:23 Levetiracetam (Keppra) 1,000 mg EVERY 12 HOURS ORAL 12/02/16 10:30 01/01/17 10:29 Metronidazole (Flagyl) 500 mg Q8HR ORAL 11/30/16 23:30 12/07/16 23:29 12/02/16 06:28 Morphine Sulfate (Morphine Sulfate) 2 mg Q4H PRN IVP Moderate Pain (Pain Scale 4-6) 11/30/16 17:45 12/07/16 17:44 12/02/16 06:34 Mycophenolate Mofetil (Cellcept) 500 mg EVERY 12 HOURS ORAL 12/02/16 10:30 01/01/17 10:29 Nitroglycerin (Ntg) 0.4 mg Q5MIN PRN SL Prn Chest Pain 11/30/16 13:45 12/31/16 13:44 Ondansetron HCl (Zofran) 4 mg Q6H PRN IVP Nausea & Vomiting 11/30/16 17:45 12/30/16 17:44 Patient Own Medication (Patient's Own Med) 1 ea Q12HR ORAL 12/01/16 22:00 12/31/16 21:59 12/01/16 22:01 Polyethylene Glycol (Miralax) 17 gm DAILYPRN PRN ORAL Constipation 11/30/16 17:45 12/30/16 17:44 Prednisone (predniSONE) 5 mg DAILY ORAL 12/01/16 21:00 12/31/16 20:59 12/02/16 09:23 Tacrolimus (Prograf) 2 mg EVERY 12 HOURS ORAL 12/02/16 10:00 01/01/17 09:59 Temazepam 15 mg 15 mg HSPRN PRN ORAL Insomnia 12/01/16 20:00 12/08/16 19:59 GRACE ABRAHAM Dec 02, 2016 10:10
[2016-12-02] MEDS: ONFI 20 MG ORAL SCH ×2 (10:34→20:52)
--- NOTE | 2016-12-02 18:06 | General Surgery Progress Note ---
General Surgery-Progress Note Subjective Procedure Performed I & D of infected fistula in ano Objective Last 24 Hour Vital Signs Date Time Temp Pulse Resp B/P Pulse Ox O2 Delivery O2 Flow Rate FiO2 12/02/16 16:08 98.0 67 20 119/70 95 Room Air 12/02/16 11:51 97.2 73 20 130/80 95 Room Air 12/02/16 09:23 66 115/68 12/02/16 08:11 66 16 Room Air 21 12/02/16 08:09 97.0 67 20 115/68 96 Room Air 12/02/16 04:00 97.2 63 18 119/73 95 Room Air 12/02/16 00:00 98.2 73 18 130/91 96 Room Air 12/01/16 21:10 75 128/73 12/01/16 20:18 75 16 Room Air 21 12/01/16 20:00 98.2 81 18 128/73 100 Room Air I&O Intake and Output 12/01/16 12/02/16 19:00 07:00 Intake Total 940 ml 2210 ml Balance 940 ml 2210 ml Intake Oral 900 ml 1900 ml IV Total 40 ml 310 ml # Voids 1 Laboratory Tests Test 12/02/16 05:20 White Blood Count 7.7 K/UL (4.8-10.8) Red Blood Count 3.60 M/UL (4.70-6.10) L Hemoglobin 11.5 G/DL (14.2-18.0) L Hematocrit 34.5 % (42.0-52.0) L Mean Corpuscular Volume 96 FL (80-99) Mean Corpuscular Hemoglobin 31.9 PG (27.0-31.0) H Mean Corpuscular Hemoglobin Concent 33.4 G/DL (32.0-36.0) Red Cell Distribution Width 11.0 % (11.6-14.8) L Platelet Count 139 K/UL (150-450) L Mean Platelet Volume 7.4 FL (6.5-10.1) Neutrophils (%) (Auto) 54.0 % (45.0-75.0) Lymphocytes (%) (Auto) 29.8 % (20.0-45.0) Monocytes (%) (Auto) 12.9 % (1.0-10.0) H Eosinophils (%) (Auto) 2.7 % (0.0-3.0) Basophils (%) (Auto) 0.7 % (0.0-2.0) Sodium Level 140 mEQ/L (135-145) Potassium Level 4.6 mEQ/L (3.4-4.9) Chloride Level 99 mEQ/L (98-107) Carbon Dioxide Level 26 mEQ/L (20-30) Anion Gap 15 (5-15) Blood Urea Nitrogen 19 mg/dL (7-23) Creatinine 1.2 mg/dL (0.7-1.2) Estimat Glomerular Filtration Rate > 60 mL/min (>60) Glucose Level 85 mg/dL (74-106) Calcium Level 8.4 mg/dL (8.6-10.2) L Phosphorus Level 3.5 mg/dL (2.5-4.8) Magnesium Level 1.8 mg/dL (1.7-2.5) Total Bilirubin 0.3 mg/dL (0.0-1.2) Aspartate Amino Transf (AST/SGOT) 21 U/L (5-40) Alanine Aminotransferase (ALT/SGPT) 13 U/L (3-41) Alkaline Phosphatase 48 U/L (40-129) Total Protein 5.4 g/dL (6.6-8.7) L Albumin 3.1 g/dL (3.5-5.2) L Globulin 2.3 g/dL Albumin/Globulin Ratio 1.3 (1.0-2.7) Additional Comments cavity open no drainage erythema has improved Assessment Post-op Diagnosis S/P Infected fistula in ano Plan Additional Comments wound care if ok with admitting MD he can be discharged in AM. He requires follow up and fistulectomy by [facility] or [facility] surgeon . SHAVONNE MEYER Dec 02, 2016 18:06
[2016-12-02] MEDS ORDERED: Morphine Sulfate 2mg/ml Inj IVP PRN (18:12)
[2016-12-02] MEDS ORDERED: Norco 5mg/325mg tab ORAL PRN (18:15)
[2016-12-02] MEDS ORDERED: Tubing IV Secondary IV ONE (18:47)
[2016-12-02] MEDS ORDERED: NS 275ml ONE (18:47)
[2016-12-02] MEDS: Cefepime HCl 2 GM in D5W 110 ML IV SCH (20:59)
[2016-12-03] VITALS (7 sets, daily range): BP systolic 112–148; BP diastolic 72–99
[2016-12-03] MEDS: metroNIDAZOLE 500mg tab ORAL SCH ×3 (05:49→21:04)
[2016-12-03] MEDS: NovoLOG Insulin Flexpen SUBQ SCH ×4 (05:52→21:00)
--- NOTE | 2016-12-03 08:18 | Infectious Diseases Prog Note ---
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, on maintenance immunosuppression // CKD3 // NKDA // Full Code PLAN: - continue empiric IV cefepime, flagyl d# , pending cultures , may Change to PO after the final Cx is back - f/u cultures - monitor CBC, temperatures - monitor BMP - wound care - fistulectomy as out pt as per GenSx - may DC after the Wnd CX has finalized Subjective Constitutional: Denies: anorexia, chills, drenching sweats, fatigue, fever, no symptoms, other Allergies: Coded Allergies: No Known Allergies (Unverified , 11/30/16) Subjective feeling better, Objective Vital Signs Last 24 Hour Vital Signs Date Time Temp Pulse Resp B/P Pulse Ox O2 Delivery O2 Flow Rate FiO2 12/03/16 08:07 97.2 63 18 144/80 98 Room Air 12/03/16 04:00 96.4 56 18 136/79 96 Room Air 12/03/16 00:00 97.9 63 18 112/72 95 Room Air 12/02/16 20:52 62 140/90 12/02/16 20:11 62 15 Room Air 21 12/02/16 20:00 98.2 75 18 140/90 95 Room Air 12/02/16 16:08 98.0 67 20 119/70 95 Room Air 12/02/16 11:51 97.2 73 20 130/80 95 Room Air 12/02/16 09:23 66 115/68 Height (Feet): 5 Height (Inches): 4.96 Weight (Pounds): 231 HEENT: atraumatic Respiratory/Chest: lungs clear Cardiovascular: regularly irregular Abdomen: non distended Microbiology Date/Time Source Procedure Growth Status 11/30/16 22:00 Other Gram Stain - Final Resulted 11/30/16 22:00 Wound Culture - Preliminary Gram Negative Jluis Resulted Current Medications Medications (Trade) Dose Ordered Sig/Catrachito Route PRN Reason Start Time Stop Time Status Last Admin Dose Admin Acetaminophen (Tylenol) 650 mg Q4H PRN ORAL fever 11/30/16 17:45 12/30/16 17:44 Acetaminophen/ Hydrocodone Bitart ([place] 5/325) 1 tab Q4H PRN ORAL Moderate Pain (Pain Scale 4-6) 12/02/16 18:15 12/09/16 18:14 Albuterol/ Ipratropium (DuoNeb 0.5-3(2.5)mg/3ml) 3 ml Q4H PRN HHN Shortness of Breath 12/01/16 13:45 12/06/16 13:44 Atenolol (Tenormin) 50 mg Q12HR ORAL 12/01/16 21:00 12/31/16 20:59 12/02/16 20:52 Cefepime HCl/ Dextrose (Maxipime/D5W) 110 ml @ 220 mls/hr Q24H IV 11/30/16 21:00 12/07/16 20:59 12/02/16 20:59 Cetylpyridinium Chloride (Cepacol) 1 lozenge Q2H PRN CHERYL For sore throat 12/02/16 13:00 01/01/17 12:59 12/02/16 14:21 Clonazepam (KlonoPIN) 1 mg Q12HR ORAL 12/01/16 21:00 12/08/16 20:59 12/02/16 20:56 Dextrose (Dextrose 50%) STAT PRN IV Hypoglycemia 11/30/16 17:45 12/30/16 17:44 Divalproex Sodium (Depakote) 500 mg DAILY ORAL 12/02/16 10:15 01/01/17 10:14 12/02/16 10:34 Divalproex Sodium (Depakote) 1,000 mg BEDTIME ORAL 12/02/16 21:00 01/01/17 20:59 12/02/16 20:57 Heparin Sodium (Porcine) (Heparin 5000 units/ml) 5,000 units EVERY 12 HOURS SUBQ 12/01/16 21:00 12/31/16 20:59 12/02/16 21:11 Insulin Aspart (NovoLOG) BEFORE MEALS AND HS SUBQ 12/01/16 16:30 12/31/16 16:29 12/01/16 21:21 Lacosamide (Vimpat) 200 mg Q12HR ORAL 12/01/16 21:00 12/31/16 20:59 12/02/16 20:55 Levetiracetam (Keppra) 1,000 mg EVERY 12 HOURS ORAL 12/02/16 10:30 01/01/17 10:29 12/02/16 20:56 Metronidazole (Flagyl) 500 mg Q8HR ORAL 11/30/16 23:30 12/07/16 23:29 12/03/16 05:49 Morphine Sulfate (Morphine Sulfate) 2 mg Q4H PRN IVP Severe Pain (Pain Scale 7-10) 12/02/16 18:12 12/07/16 17:44 Mycophenolate Mofetil (Cellcept) 500 mg EVERY 12 HOURS ORAL 12/02/16 10:30 01/01/17 10:29 12/02/16 20:55 Nitroglycerin (Ntg) 0.4 mg Q5MIN PRN SL Prn Chest Pain 11/30/16 13:45 12/31/16 13:44 Ondansetron HCl (Zofran) 4 mg Q6H PRN IVP Nausea & Vomiting 11/30/16 17:45 12/30/16 17:44 Patient Own Medication (Patient's Own Med) 1 ea Q12HR ORAL 12/01/16 22:00 12/31/16 21:59 12/02/16 20:52 Polyethylene Glycol (Miralax) 17 gm DAILYPRN PRN ORAL Constipation 11/30/16 17:45 12/30/16 17:44 Prednisone (predniSONE) 5 mg DAILY ORAL 12/01/16 21:00 12/31/16 20:59 12/02/16 09:23 Tacrolimus (Prograf) 2 mg EVERY 12 HOURS ORAL 12/02/16 10:00 01/01/17 09:59 12/02/16 20:55 Temazepam (Restoril) 15 mg HSPRN PRN ORAL Insomnia 12/01/16 20:00 12/08/16 19:59 YANNICK BERRY M.D. Dec 03, 2016 08:18
[2016-12-03] MEDS: Mycophenolate 250mg cap ORAL SCH ×2 (09:21→21:06)
[2016-12-03] MEDS: Depakote 500mg tab ORAL SCH ×2 (09:25→21:07)
[2016-12-03] MEDS: PredniSONE 5mg tab ORAL SCH (09:26)
[2016-12-03] MEDS: Lacosamide 100 MG TABLET ORAL SCH ×2 (09:27→21:05)
[2016-12-03] MEDS: Heparin 5000 units/ml inj SUBQ SCH ×2 (09:30→21:08)
[2016-12-03] MEDS: ONFI 20 MG ORAL SCH ×3 (10:26→21:33)
[2016-12-03] MEDS ORDERED: Tubing IV Secondary IV ONE (11:02)
[2016-12-03] MEDS ORDERED: NS 275ml ONE (11:02)
--- NOTE | 2016-12-03 19:24 | Pulmonology Progress Note ---
Assessment/Plan Problems: (1) Keerthi-rectal abscess (2) ATN (acute tubular necrosis) (3) Status post kidney transplant Assessment/Plan continue IV antibiotics dc home when cultures are finalized check electrolytes Subjective ROS Limited/Unobtainable: No Interval Events: no new complians Allergies: Coded Allergies: No Known Allergies (Unverified , 11/30/16) Objective Last 24 Hour Vital Signs Date Time Temp Pulse Resp B/P Pulse Ox O2 Delivery O2 Flow Rate FiO2 12/03/16 15:39 97.0 64 18 128/89 97 Room Air 12/03/16 12:00 96.8 62 18 134/98 97 Room Air 12/03/16 09:26 76 144/80 12/03/16 08:09 76 15 Room Air 21 12/03/16 08:07 97.2 63 18 144/80 98 Room Air 12/03/16 04:00 96.4 56 18 136/79 96 Room Air 12/03/16 00:00 97.9 63 18 112/72 95 Room Air 12/02/16 20:52 62 140/90 12/02/16 20:11 62 15 Room Air 21 12/02/16 20:00 98.2 75 18 140/90 95 Room Air Intake and Output 12/02/16 12/03/16 19:00 07:00 Intake Total 720 ml 110 ml Output Total 1700 ml Balance -980 ml 110 ml Intake Oral 720 ml IV Total 110 ml Output Urine Total 1700 ml # Voids 2 General Appearance: WD/WN HEENT: normocephalic, atraumatic Respiratory/Chest: chest wall non-tender, lungs clear Cardiovascular: normal peripheral pulses, normal rate Abdomen: normal bowel sounds, soft, non tender Genitourinary: normal external genitalia Extremities: no cyanosis Microbiology Date/Time Source Procedure Growth Status 11/30/16 22:00 Other Gram Stain - Final Resulted 11/30/16 22:00 Wound Culture - Preliminary Gram Negative Bacillus 1 Resulted Current Medications Medications (Trade) Dose Ordered Sig/Catrachito Route PRN Reason Start Time Stop Time Status Last Admin Dose Admin Acetaminophen (Tylenol) 650 mg Q4H PRN ORAL fever 11/30/16 17:45 12/30/16 17:44 Acetaminophen/ Hydrocodone Bitart ([place] 5/325) 1 tab Q4H PRN ORAL Moderate Pain (Pain Scale 4-6) 12/02/16 18:15 12/09/16 18:14 Albuterol/ Ipratropium (DuoNeb 0.5-3(2.5)mg/3ml) 3 ml Q4H PRN HHN Shortness of Breath 12/01/16 13:45 12/06/16 13:44 Atenolol (Tenormin) 50 mg Q12HR ORAL 12/01/16 21:00 12/31/16 20:59 12/03/16 09:26 Cefepime HCl/ Dextrose (Maxipime/D5W) 110 ml @ 220 mls/hr Q12HR IV 12/03/16 21:00 12/10/16 20:59 Cetylpyridinium Chloride (Cepacol) 1 lozenge Q2H PRN CHERYL For sore throat 12/02/16 13:00 01/01/17 12:59 12/02/16 14:21 Clonazepam (KlonoPIN) 1 mg Q12HR ORAL 12/01/16 21:00 12/08/16 20:59 12/03/16 09:26 Dextrose (Dextrose 50%) STAT PRN IV Hypoglycemia 11/30/16 17:45 12/30/16 17:44 Divalproex Sodium (Depakote) 500 mg DAILY ORAL 12/02/16 10:15 01/01/17 10:14 12/03/16 09:25 Divalproex Sodium (Depakote) 1,000 mg BEDTIME ORAL 12/02/16 21:00 01/01/17 20:59 12/02/16 20:57 Heparin Sodium (Porcine) (Heparin 5000 units/ml) 5,000 units EVERY 12 HOURS SUBQ 12/01/16 21:00 12/31/16 20:59 12/03/16 09:30 Insulin Aspart (NovoLOG) BEFORE MEALS AND HS SUBQ 12/01/16 16:30 12/31/16 16:29 12/03/16 12:16 Lacosamide (Vimpat) 200 mg Q12HR ORAL 12/01/16 21:00 12/31/16 20:59 12/03/16 09:27 Levetiracetam (Keppra) 1,000 mg EVERY 12 HOURS ORAL 12/02/16 10:30 01/01/17 10:29 12/03/16 09:26 Metronidazole (Flagyl) 500 mg Q8HR ORAL 11/30/16 23:30 12/07/16 23:29 12/03/16 13:59 Morphine Sulfate 2 mg 2 mg Q4H PRN IVP Severe Pain (Pain Scale 7-10) 12/02/16 18:12 12/07/16 17:44 Mycophenolate Mofetil (Cellcept) 500 mg EVERY 12 HOURS ORAL 12/02/16 10:30 01/01/17 10:29 12/03/16 09:21 Nitroglycerin (Ntg) 0.4 mg Q5MIN PRN SL Prn Chest Pain 11/30/16 13:45 12/31/16 13:44 Ondansetron HCl (Zofran) 4 mg Q6H PRN IVP Nausea & Vomiting 11/30/16 17:45 12/30/16 17:44 Patient Own Medication (Patient's Own Med) 1 ea Q12HR ORAL 12/01/16 22:00 12/31/16 21:59 12/03/16 10:26 Polyethylene Glycol (Miralax) 17 gm DAILYPRN PRN ORAL Constipation 11/30/16 17:45 12/30/16 17:44 Prednisone (predniSONE) 5 mg DAILY ORAL 12/01/16 21:00 12/31/16 20:59 12/03/16 09:26 Tacrolimus (Prograf) 2 mg EVERY 12 HOURS ORAL 12/02/16 10:00 01/01/17 09:59 12/03/16 09:21 Temazepam (Restoril) 15 mg HSPRN PRN ORAL Insomnia 12/01/16 20:00 12/08/16 19:59 LETY JO Dec 03, 2016 19:24
[2016-12-03] MEDS: Cefepime HCl 2 GM in D5W 110 ML IV SCH (21:03)
[2016-12-04] MEDS: metroNIDAZOLE 500mg tab ORAL SCH ×3 (05:33→20:55)
[2016-12-04] MEDS: NovoLOG Insulin Flexpen SUBQ SCH ×4 (05:34→21:00)
[2016-12-04 06:51] LABS: ALANINE AMINOTRANSFERASE 12 U/L (3-41); ANION GAP 11 (5-15); ASPARTATE AMINO TRANSFERASE 15 U/L (5-40); CALCIUM 8.7 mg/dL (8.6-10.2); CARBON DIOXIDE 26 mEQ/L (20-30); CHLORIDE 100 mEQ/L (98-107); CREATININE 1.2 mg/dL (0.7-1.2); GLOMERULAR FILTRATION RATE > 60 mL/min (>60); HEMOLYSIS 6; MAGNESIUM 1.7 mg/dL (1.7-2.5); PHOSPHORUS 2.9 mg/dL (2.5-4.8); POTASSIUM 4.4 mEQ/L (3.4-4.9); SODIUM 137 mEQ/L (135-145)
[2016-12-04 06:57] LABS: BASOPHILS % (AUTO) 1.1 % (0.0-2.0); EOSINOPHILS % (AUTO) 3.4 % (0.0-3.0); LYMPHOCYTES % (AUTO) 34.3 % (20.0-45.0); MEAN CORPUSCULAR HEMOGLOBIN 31.8 PG (27.0-31.0); MEAN CORPUSCULAR HGB CONC 34.2 G/DL (32.0-36.0); MEAN CORPUSCULAR VOLUME 93 FL (80-99); MEAN PLATELET VOLUME 7.3 FL (6.5-10.1); NEUTROPHILS % (AUTO) 49.2 % (45.0-75.0); PLATELET COUNT 182 K/UL (150-450); RED BLOOD COUNT 3.72 M/UL (4.70-6.10); RED CELL DISTRIBUTION WIDTH 10.7 % (11.6-14.8); WHITE BLOOD COUNT 6.6 K/UL (4.8-10.8)
[2016-12-04 08:00] VITALS: BP 123/84
[2016-12-04] MEDS: ONFI 20 MG ORAL SCH ×2 (08:46→23:05)
[2016-12-04] MEDS: Depakote 500mg tab ORAL SCH ×2 (08:46→20:55)
[2016-12-04] MEDS: Cefepime HCl 2 GM in D5W 110 ML IV SCH ×2 (08:46→23:05)
[2016-12-04] MEDS: Lacosamide 100 MG TABLET ORAL SCH ×2 (08:47→20:53)
[2016-12-04] MEDS: PredniSONE 5mg tab ORAL SCH (08:47)
[2016-12-04] MEDS: Mycophenolate 250mg cap ORAL SCH ×2 (08:48→20:54)
[2016-12-04] MEDS: Heparin 5000 units/ml inj SUBQ SCH ×2 (08:50→20:57)
--- NOTE | 2016-12-04 09:50 | Infectious Diseases Prog Note ---
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, on maintenance immunosuppression // CKD3 // NKDA // Full Code PLAN: - continue empiric IV cefepime, flagyl d# -14 , pending cultures , may Change to PO after the final Cx is back - f/u cultures - monitor CBC, temperatures - monitor BMP - wound care - fistulectomy as out pt as per GenSx - may DC after the Wnd CX has finalized Subjective Allergies: Coded Allergies: No Known Allergies (Unverified , 11/30/16) Subjective afebrile Objective Vital Signs Last 24 Hour Vital Signs Date Time Temp Pulse Resp B/P Pulse Ox O2 Delivery O2 Flow Rate FiO2 12/04/16 08:47 65 123/84 12/04/16 08:00 97.3 65 20 123/84 95 Room Air 12/04/16 06:37 60 16 Room Air 12/03/16 23:56 96.9 60 18 136/88 100 Room Air 12/03/16 21:06 61 148/99 12/03/16 19:59 96.8 61 18 148/99 100 Room Air 12/03/16 19:46 70 16 Room Air 21 12/03/16 15:39 97.0 64 18 128/89 97 Room Air 12/03/16 12:00 96.8 62 18 134/98 97 Room Air Height (Feet): 5 Height (Inches): 4.96 Weight (Pounds): 231 HEENT: anicteric Respiratory/Chest: no respiratory distress Cardiovascular: regular rhythm Abdomen: soft, non tender Laboratory Tests Test 12/04/16 05:45 White Blood Count 6.6 K/UL (4.8-10.8) Red Blood Count 3.72 M/UL (4.70-6.10) L Hemoglobin 11.8 G/DL (14.2-18.0) L Hematocrit 34.6 % (42.0-52.0) L Mean Corpuscular Volume 93 FL (80-99) Mean Corpuscular Hemoglobin 31.8 PG (27.0-31.0) H Mean Corpuscular Hemoglobin Concent 34.2 G/DL (32.0-36.0) Red Cell Distribution Width 10.7 % (11.6-14.8) L Platelet Count 182 K/UL (150-450) Mean Platelet Volume 7.3 FL (6.5-10.1) Neutrophils (%) (Auto) 49.2 % (45.0-75.0) Lymphocytes (%) (Auto) 34.3 % (20.0-45.0) Monocytes (%) (Auto) 12.0 % (1.0-10.0) H Eosinophils (%) (Auto) 3.4 % (0.0-3.0) H Basophils (%) (Auto) 1.1 % (0.0-2.0) Sodium Level 137 mEQ/L (135-145) Potassium Level 4.4 mEQ/L (3.4-4.9) Chloride Level 100 mEQ/L (98-107) Carbon Dioxide Level 26 mEQ/L (20-30) Anion Gap 11 (5-15) Blood Urea Nitrogen 17 mg/dL (7-23) Creatinine 1.2 mg/dL (0.7-1.2) Estimat Glomerular Filtration Rate > 60 mL/min (>60) Glucose Level 96 mg/dL (74-106) Calcium Level 8.7 mg/dL (8.6-10.2) Phosphorus Level 2.9 mg/dL (2.5-4.8) Magnesium Level 1.7 mg/dL (1.7-2.5) Total Bilirubin 0.3 mg/dL (0.0-1.2) Aspartate Amino Transf (AST/SGOT) 15 U/L (5-40) Alanine Aminotransferase (ALT/SGPT) 12 U/L (3-41) Alkaline Phosphatase 47 U/L (40-129) Total Protein 6.0 g/dL (6.6-8.7) L Albumin 3.0 g/dL (3.5-5.2) L Globulin 3.0 g/dL Albumin/Globulin Ratio 1.0 (1.0-2.7) Current Medications Medications (Trade) Dose Ordered Sig/Catrachito Route PRN Reason Start Time Stop Time Status Last Admin Dose Admin Acetaminophen (Tylenol) 650 mg Q4H PRN ORAL fever 11/30/16 17:45 12/30/16 17:44 Acetaminophen/ Hydrocodone Bitart ([place] 5/325) 1 tab Q4H PRN ORAL Moderate Pain (Pain Scale 4-6) 12/02/16 18:15 12/09/16 18:14 Albuterol/ Ipratropium (DuoNeb 0.5-3(2.5)mg/3ml) 3 ml Q4H PRN HHN Shortness of Breath 12/01/16 13:45 12/06/16 13:44 Atenolol (Tenormin) 50 mg Q12HR ORAL 12/01/16 21:00 12/31/16 20:59 12/04/16 08:47 Cefepime HCl/ Dextrose (Maxipime/D5W) 110 ml @ 220 mls/hr Q12HR IV 12/03/16 21:00 12/10/16 20:59 12/04/16 08:46 Cetylpyridinium Chloride (Cepacol) 1 lozenge Q2H PRN CHERYL For sore throat 12/02/16 13:00 01/01/17 12:59 12/02/16 14:21 Clonazepam (KlonoPIN) 1 mg Q12HR ORAL 12/01/16 21:00 12/08/16 20:59 12/04/16 08:47 Dextrose (Dextrose 50%) STAT PRN IV Hypoglycemia 11/30/16 17:45 12/30/16 17:44 Divalproex Sodium (Depakote) 500 mg DAILY ORAL 12/02/16 10:15 01/01/17 10:14 12/04/16 08:46 Divalproex Sodium (Depakote) 1,000 mg BEDTIME ORAL 12/02/16 21:00 01/01/17 20:59 12/03/16 21:07 Heparin Sodium (Porcine) (Heparin 5000 units/ml) 5,000 units EVERY 12 HOURS SUBQ 12/01/16 21:00 12/31/16 20:59 12/04/16 08:50 Insulin Aspart (NovoLOG) BEFORE MEALS AND HS SUBQ 12/01/16 16:30 12/31/16 16:29 12/03/16 12:16 Lacosamide (Vimpat) 200 mg Q12HR ORAL 12/01/16 21:00 12/31/16 20:59 12/04/16 08:47 Levetiracetam (Keppra) 1,000 mg EVERY 12 HOURS ORAL 12/02/16 10:30 01/01/17 10:29 12/04/16 08:48 Metronidazole (Flagyl) 500 mg Q8HR ORAL 11/30/16 23:30 12/07/16 23:29 12/04/16 05:33 Morphine Sulfate 2 mg 2 mg Q4H PRN IVP Severe Pain (Pain Scale 7-10) 12/02/16 18:12 12/07/16 17:44 Mycophenolate Mofetil (Cellcept) 500 mg EVERY 12 HOURS ORAL 12/02/16 10:30 01/01/17 10:29 12/04/16 08:48 Nitroglycerin (Ntg) 0.4 mg Q5MIN PRN SL Prn Chest Pain 11/30/16 13:45 12/31/16 13:44 Ondansetron HCl (Zofran) 4 mg Q6H PRN IVP Nausea & Vomiting 11/30/16 17:45 12/30/16 17:44 Patient Own Medication (Patient's Own Med) 1 ea Q12HR ORAL 12/01/16 22:00 12/31/16 21:59 12/04/16 08:46 Polyethylene Glycol (Miralax) 17 gm DAILYPRN PRN ORAL Constipation 11/30/16 17:45 12/30/16 17:44 Prednisone (predniSONE) 5 mg DAILY ORAL 12/01/16 21:00 12/31/16 20:59 12/04/16 08:47 Tacrolimus (Prograf) 2 mg EVERY 12 HOURS ORAL 12/02/16 10:00 01/01/17 09:59 12/04/16 08:48 Temazepam (Restoril) 15 mg HSPRN PRN ORAL Insomnia 12/01/16 20:00 12/08/16 19:59 YANNIKC BERRY M.D. Dec 04, 2016 09:50
[2016-12-04 12:00] VITALS: BP 132/79
--- NOTE | 2016-12-04 12:56 | Diagnostic Imaging Report ---
APPROVED REPORT CPT Code: 69768 Present Symptoms Shortness of breath BILATERAL: Imaging reveals a patent deep venous system bilaterally. There is no evidence of thrombus within the femoral, popliteal or tibial segments. The greater saphenous veins are also within normal limits. Doppler indicates normal spontaneous flow within these segments.
--- NOTE | 2016-12-04 15:03 | Pulmonology Progress Note ---
Assessment/Plan Problems: (1) Keerthi-rectal abscess (2) ATN (acute tubular necrosis) (3) Status post kidney transplant Assessment/Plan continue IV antibiotics dc home when cultures are finalized check electrolytes cultures still pending Subjective ROS Limited/Unobtainable: Yes Allergies: Coded Allergies: No Known Allergies (Unverified , 11/30/16) Objective Last 24 Hour Vital Signs Date Time Temp Pulse Resp B/P Pulse Ox O2 Delivery O2 Flow Rate FiO2 12/04/16 12:00 97.7 66 20 132/79 97 Room Air 12/04/16 08:47 65 123/84 12/04/16 08:00 97.3 65 20 123/84 95 Room Air 12/04/16 06:37 60 16 Room Air 12/03/16 23:56 96.9 60 18 136/88 100 Room Air 12/03/16 21:06 61 148/99 12/03/16 19:59 96.8 61 18 148/99 100 Room Air 12/03/16 19:46 70 16 Room Air 21 12/03/16 15:39 97.0 64 18 128/89 97 Room Air Intake and Output 12/03/16 12/04/16 19:00 07:00 Intake Total 960 ml 590 ml Output Total 1300 ml Balance -340 ml 590 ml Intake Oral 960 ml 480 ml IV Total 110 ml Output Urine Total 1300 ml # Voids 1 4 General Appearance: WD/WN HEENT: normocephalic, atraumatic Respiratory/Chest: chest wall non-tender, lungs clear, normal breath sounds Cardiovascular: normal peripheral pulses, normal rate Abdomen: normal bowel sounds, soft, non tender Genitourinary: normal external genitalia Extremities: no cyanosis Skin: no rash, no ulcers Neurologic/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, no motor/sensory deficits Laboratory Tests 12/04/16 05:45: White Blood Count 6.6, Red Blood Count 3.72L, Hemoglobin 11.8L, Hematocrit 34.6L , Mean Corpuscular Volume 93, Mean Corpuscular Hemoglobin 31.8H, Mean Corpuscular Hemoglobin Concent 34.2, Red Cell Distribution Width 10.7L, Platelet Count 182, Mean Platelet Volume 7.3, Neutrophils (%) (Auto) 49.2, Lymphocytes (%) (Auto) 34.3, Monocytes (%) (Auto) 12.0H, Eosinophils (%) (Auto) 3.4H, Basophils (%) (Auto) 1.1, Sodium Level 137, Potassium Level 4.4, Chloride Level 100, Carbon Dioxide Level 26, Anion Gap 11, Blood Urea Nitrogen 17, Creatinine 1.2, Estimat Glomerular Filtration Rate > 60, Glucose Level 96, Calcium Level 8.7, Phosphorus Level 2.9, Magnesium Level 1.7, Total Bilirubin 0.3, Aspartate Amino Transf (AST/SGOT) 15, Alanine Aminotransferase (ALT/SGPT) 12, Alkaline Phosphatase 47, Total Protein 6.0L, Albumin 3.0L, Globulin 3.0, Albumin/Globulin Ratio 1.0 Current Medications Medications (Trade) Dose Ordered Sig/Catrachito Route PRN Reason Start Time Stop Time Status Last Admin Dose Admin Acetaminophen (Tylenol) 650 mg Q4H PRN ORAL fever 11/30/16 17:45 12/30/16 17:44 Acetaminophen/ Hydrocodone Bitart ([place] 5/325) 1 tab Q4H PRN ORAL Moderate Pain (Pain Scale 4-6) 12/02/16 18:15 12/09/16 18:14 Albuterol/ Ipratropium (DuoNeb 0.5-3(2.5)mg/3ml) 3 ml Q4H PRN HHN Shortness of Breath 12/01/16 13:45 12/06/16 13:44 Atenolol (Tenormin) 50 mg Q12HR ORAL 12/01/16 21:00 12/31/16 20:59 12/04/16 08:47 Cefepime HCl/ Dextrose (Maxipime/D5W) 110 ml @ 220 mls/hr Q12HR IV 12/03/16 21:00 12/10/16 20:59 12/04/16 08:46 Cetylpyridinium Chloride (Cepacol) 1 lozenge Q2H PRN CHERYL For sore throat 12/02/16 13:00 01/01/17 12:59 12/02/16 14:21 Clonazepam (KlonoPIN) 1 mg Q12HR ORAL 12/01/16 21:00 12/08/16 20:59 12/04/16 08:47 Dextrose (Dextrose 50%) STAT PRN IV Hypoglycemia 11/30/16 17:45 12/30/16 17:44 Divalproex Sodium (Depakote) 500 mg DAILY ORAL 12/02/16 10:15 01/01/17 10:14 12/04/16 08:46 Divalproex Sodium (Depakote) 1,000 mg BEDTIME ORAL 12/02/16 21:00 01/01/17 20:59 12/03/16 21:07 Heparin Sodium (Porcine) (Heparin 5000 units/ml) 5,000 units EVERY 12 HOURS SUBQ 12/01/16 21:00 12/31/16 20:59 12/04/16 08:50 Insulin Aspart (NovoLOG) BEFORE MEALS AND HS SUBQ 12/01/16 16:30 12/31/16 16:29 12/03/16 12:16 Lacosamide (Vimpat) 200 mg Q12HR ORAL 12/01/16 21:00 12/31/16 20:59 12/04/16 08:47 Levetiracetam (Keppra) 1,000 mg EVERY 12 HOURS ORAL 12/02/16 10:30 01/01/17 10:29 12/04/16 08:48 Metronidazole (Flagyl) 500 mg Q8HR ORAL 11/30/16 23:30 12/07/16 23:29 12/04/16 13:38 Morphine Sulfate 2 mg 2 mg Q4H PRN IVP Severe Pain (Pain Scale 7-10) 12/02/16 18:12 12/07/16 17:44 Mycophenolate Mofetil (Cellcept) 500 mg EVERY 12 HOURS ORAL 12/02/16 10:30 01/01/17 10:29 12/04/16 08:48 Nitroglycerin (Ntg) 0.4 mg Q5MIN PRN SL Prn Chest Pain 11/30/16 13:45 12/31/16 13:44 Ondansetron HCl (Zofran) 4 mg Q6H PRN IVP Nausea & Vomiting 11/30/16 17:45 12/30/16 17:44 Patient Own Medication (Patient's Own Med) 1 ea Q12HR ORAL 12/01/16 22:00 12/31/16 21:59 12/04/16 08:46 Polyethylene Glycol (Miralax) 17 gm DAILYPRN PRN ORAL Constipation 11/30/16 17:45 12/30/16 17:44 Prednisone (predniSONE) 5 mg DAILY ORAL 12/01/16 21:00 12/31/16 20:59 12/04/16 08:47 Tacrolimus (Prograf) 2 mg EVERY 12 HOURS ORAL 12/02/16 10:00 01/01/17 09:59 12/04/16 08:48 Temazepam (Restoril) 15 mg HSPRN PRN ORAL Insomnia 12/01/16 20:00 12/08/16 19:59 LETY JO Dec 04, 2016 15:03
[2016-12-04 16:00] VITALS: BP 125/89
[2016-12-04 20:29] VITALS: BP 131/90
[2016-12-05] VITALS: BP 139/89
[2016-12-05 04:00] VITALS: BP 127/68
[2016-12-05] MEDS: metroNIDAZOLE 500mg tab ORAL SCH ×3 (06:16→22:11)
[2016-12-05] MEDS: NovoLOG Insulin Flexpen SUBQ SCH ×4 (06:17→21:00)
[2016-12-05 06:41] LABS: BASOPHILS % (AUTO) 1.2 % (0.0-2.0); EOSINOPHILS % (AUTO) 3.2 % (0.0-3.0); LYMPHOCYTES % (AUTO) 36.9 % (20.0-45.0); MEAN CORPUSCULAR HEMOGLOBIN 31.7 PG (27.0-31.0); MEAN CORPUSCULAR HGB CONC 33.8 G/DL (32.0-36.0); MEAN CORPUSCULAR VOLUME 94 FL (80-99); MEAN PLATELET VOLUME 6.9 FL (6.5-10.1); MONOCYTES % (AUTO) 12.9 % (1.0-10.0); NEUTROPHILS % (AUTO) 45.9 % (45.0-75.0); PLATELET COUNT 197 K/UL (150-450); RED BLOOD COUNT 3.86 M/UL (4.70-6.10); RED CELL DISTRIBUTION WIDTH 10.9 % (11.6-14.8)
[2016-12-05 06:48] LABS: ALANINE AMINOTRANSFERASE 14 U/L (3-41); ANION GAP 14 (5-15); ASPARTATE AMINO TRANSFERASE 18 U/L (5-40); CALCIUM 8.7 mg/dL (8.6-10.2); CARBON DIOXIDE 25 mEQ/L (20-30); CHLORIDE 100 mEQ/L (98-107); CREATININE 1.1 mg/dL (0.7-1.2); GLOMERULAR FILTRATION RATE > 60 mL/min (>60); HEMOLYSIS 4; MAGNESIUM 1.6 mg/dL (1.7-2.5); PHOSPHORUS 3.2 mg/dL (2.5-4.8); POTASSIUM 4.1 mEQ/L (3.4-4.9); SODIUM 139 mEQ/L (135-145)
[2016-12-05 08:00] VITALS: BP 128/81
[2016-12-05] MEDS: ONFI 20 MG ORAL SCH ×2 (08:45→22:11)
[2016-12-05] MEDS: PredniSONE 5mg tab ORAL SCH (08:45)
[2016-12-05] MEDS: Mycophenolate 250mg cap ORAL SCH ×2 (08:46→22:13)
[2016-12-05] MEDS: Depakote 500mg tab ORAL SCH ×2 (08:46→22:12)
[2016-12-05] MEDS: Lacosamide 100 MG TABLET ORAL SCH ×2 (08:46→22:12)
[2016-12-05] MEDS: Heparin 5000 units/ml inj SUBQ SCH ×2 (08:52→22:15)
[2016-12-05] MEDS: Cefepime HCl 2 GM in D5W 110 ML IV SCH (08:53)
[2016-12-05 12:00] VITALS: BP 138/84
--- NOTE | 2016-12-05 14:12 | Pulmonology Progress Note ---
Assessment/Plan Problems: (1) Keerthi-rectal abscess (2) ATN (acute tubular necrosis) (3) Status post kidney transplant Assessment/Plan continue IV antibiotics esbl in cultures dc home when cultures are finalized check electrolytes invanz for 10 more days Subjective ROS Limited/Unobtainable: No Constitutional: Reports: no symptoms HEENT: Repors: no symptoms Respiratory: Reports: no symptoms Allergies: Coded Allergies: No Known Allergies (Unverified , 11/30/16) Objective Last 24 Hour Vital Signs Date Time Temp Pulse Resp B/P Pulse Ox O2 Delivery O2 Flow Rate FiO2 12/05/16 12:00 97.3 55 20 138/84 94 Room Air 12/05/16 08:45 59 128/81 12/05/16 08:21 62 18 Room Air 21 12/05/16 08:00 97.2 59 20 128/81 96 Room Air 12/05/16 04:00 96.9 62 19 127/68 93 Room Air 12/05/16 00:00 97.4 63 20 139/89 95 Room Air 12/04/16 20:55 61 131/90 12/04/16 20:29 97.5 61 18 131/90 97 Room Air 12/04/16 19:32 72 16 Room Air 21 12/04/16 16:00 97.7 66 20 125/89 95 Room Air Intake and Output 12/04/16 12/05/16 19:00 07:00 Intake Total 400 ml 590 ml Balance 400 ml 590 ml Intake Oral 400 ml 480 ml IV Total 110 ml # Voids 5 1 General Appearance: WD/WN HEENT: normocephalic, anicteric Respiratory/Chest: chest wall non-tender, lungs clear Cardiovascular: normal peripheral pulses, regular rhythm Abdomen: normal bowel sounds, soft, non tender Extremities: no clubbing Skin: no lesions Laboratory Tests 12/05/16 05:45: White Blood Count 6.0, Red Blood Count 3.86L, Hemoglobin 12.2L, Hematocrit 36.2L , Mean Corpuscular Volume 94, Mean Corpuscular Hemoglobin 31.7H, Mean Corpuscular Hemoglobin Concent 33.8, Red Cell Distribution Width 10.9L, Platelet Count 197, Mean Platelet Volume 6.9, Neutrophils (%) (Auto) 45.9, Lymphocytes (%) (Auto) 36.9, Monocytes (%) (Auto) 12.9H, Eosinophils (%) (Auto) 3.2H, Basophils (%) (Auto) 1.2, Sodium Level 139, Potassium Level 4.1, Chloride Level 100, Carbon Dioxide Level 25, Anion Gap 14, Blood Urea Nitrogen 16, Creatinine 1.1, Estimat Glomerular Filtration Rate > 60, Glucose Level 89, Calcium Level 8.7, Phosphorus Level 3.2, Magnesium Level 1.6L, Total Bilirubin 0.2, Aspartate Amino Transf (AST/SGOT) 18, Alanine Aminotransferase (ALT/SGPT) 14, Alkaline Phosphatase 47, Total Protein 6.0L, Albumin 3.1L, Globulin 2.9, Albumin/Globulin Ratio 1.0 Current Medications Medications (Trade) Dose Ordered Sig/Catrachito Route PRN Reason Start Time Stop Time Status Last Admin Dose Admin Acetaminophen (Tylenol) 650 mg Q4H PRN ORAL fever 11/30/16 17:45 12/30/16 17:44 Acetaminophen/ Hydrocodone Bitart ([place] 5/325) 1 tab Q4H PRN ORAL Moderate Pain (Pain Scale 4-6) 12/02/16 18:15 12/09/16 18:14 Albuterol/ Ipratropium (DuoNeb 0.5-3(2.5)mg/3ml) 3 ml Q4H PRN HHN Shortness of Breath 12/01/16 13:45 12/06/16 13:44 Atenolol (Tenormin) 50 mg Q12HR ORAL 12/01/16 21:00 12/31/16 20:59 12/05/16 08:45 Cefepime HCl/ Dextrose (Maxipime/D5W) 110 ml @ 220 mls/hr Q12HR IV 12/03/16 21:00 12/10/16 20:59 12/05/16 08:53 Cetylpyridinium Chloride (Cepacol) 1 lozenge Q2H PRN CHERYL For sore throat 12/02/16 13:00 01/01/17 12:59 12/02/16 14:21 Clonazepam (KlonoPIN) 1 mg Q12HR ORAL 12/01/16 21:00 12/08/16 20:59 12/05/16 08:45 Dextrose (Dextrose 50%) STAT PRN IV Hypoglycemia 11/30/16 17:45 12/30/16 17:44 Divalproex Sodium (Depakote) 500 mg DAILY ORAL 12/02/16 10:15 01/01/17 10:14 12/05/16 08:46 Divalproex Sodium (Depakote) 1,000 mg BEDTIME ORAL 12/02/16 21:00 01/01/17 20:59 12/04/16 20:55 Heparin Sodium (Porcine) (Heparin 5000 units/ml) 5,000 units EVERY 12 HOURS SUBQ 12/01/16 21:00 12/31/16 20:59 12/05/16 08:52 Insulin Aspart (NovoLOG) BEFORE MEALS AND HS SUBQ 12/01/16 16:30 12/31/16 16:29 12/03/16 12:16 Lacosamide (Vimpat) 200 mg Q12HR ORAL 12/01/16 21:00 12/31/16 20:59 12/05/16 08:46 Levetiracetam (Keppra) 1,000 mg EVERY 12 HOURS ORAL 12/02/16 10:30 01/01/17 10:29 12/05/16 08:46 Metronidazole (Flagyl) 500 mg Q8HR ORAL 11/30/16 23:30 12/07/16 23:29 12/05/16 06:16 Morphine Sulfate 2 mg 2 mg Q4H PRN IVP Severe Pain (Pain Scale 7-10) 12/02/16 18:12 12/07/16 17:44 Mycophenolate Mofetil (Cellcept) 500 mg EVERY 12 HOURS ORAL 12/02/16 10:30 01/01/17 10:29 12/05/16 08:46 Nitroglycerin (Ntg) 0.4 mg Q5MIN PRN SL Prn Chest Pain 11/30/16 13:45 12/31/16 13:44 Ondansetron HCl (Zofran) 4 mg Q6H PRN IVP Nausea & Vomiting 11/30/16 17:45 12/30/16 17:44 Patient Own Medication (Patient's Own Med) 1 ea Q12HR ORAL 12/01/16 22:00 12/31/16 21:59 12/05/16 08:45 Polyethylene Glycol (Miralax) 17 gm DAILYPRN PRN ORAL Constipation 11/30/16 17:45 12/30/16 17:44 Prednisone (predniSONE) 5 mg DAILY ORAL 12/01/16 21:00 12/31/16 20:59 12/05/16 08:45 Tacrolimus (Prograf) 2 mg EVERY 12 HOURS ORAL 12/04/16 22:00 01/03/17 21:59 12/05/16 08:46 Temazepam (Restoril) 15 mg HSPRN PRN ORAL Insomnia 12/01/16 20:00 12/08/16 19:59 LETY JO Dec 05, 2016 14:12
[2016-12-05] MEDS ORDERED: INVANZ1 G1 IM (14:17)
[2016-12-05] MEDS ORDERED: Sodium Bicarbonate 4% 2.4meq/5ml vial INJ PRN (14:30)
[2016-12-05 16:00] VITALS: BP 154/94
[2016-12-05] MEDS: Ertapenem 1 GM in NS 55 ML IVPB SCH (16:46)
[2016-12-05 20:00] VITALS: BP 134/80
[2016-12-06] VITALS (7 sets, daily range): BP systolic 119–144; BP diastolic 77–85
[2016-12-06] MEDS: metroNIDAZOLE 500mg tab ORAL SCH ×2 (05:46→13:40)
[2016-12-06] MEDS: NovoLOG Insulin Flexpen SUBQ SCH ×3 (06:30→17:51)
[2016-12-06] MEDS ORDERED: Dyna-Hex 2% Top Sol 8oz TOPIC SCH ×2 (09:00)
[2016-12-06] MEDS ORDERED: Sodium Bicarbonate 4% 2.4meq/5ml vial INJ ONE (09:00)
[2016-12-06] MEDS ORDERED: Heparin 2000 units/Ns 1000ml INJ ONE (10:00)
[2016-12-06] MEDS ORDERED: Lidocaine 1% Plain 30 ml INJ ONE (10:00)
[2016-12-06] MEDS: PredniSONE 5mg tab ORAL SCH (11:22)
[2016-12-06] MEDS: Lacosamide 100 MG TABLET ORAL SCH (11:22)
[2016-12-06] MEDS: Depakote 500mg tab ORAL SCH (11:23)
[2016-12-06] MEDS: Mycophenolate 250mg cap ORAL SCH (11:24)
[2016-12-06] MEDS: Heparin 5000 units/ml inj SUBQ SCH (11:25)
[2016-12-06] MEDS: ONFI 20 MG ORAL SCH (11:25)
--- NOTE | 2016-12-06 12:24 | Infectious Diseases Prog Note ---
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, on maintenance immunosuppression // CKD3 // NKDA // Full Code PLAN: - continue Invanz d# 2 / 12/05 SP IV cefepime, flagyl d# 6 - monitor CBC, temperatures - monitor BMP - wound care - fistulectomy as out pt as per [facility] Subjective Constitutional: Denies: anorexia, chills, drenching sweats, fatigue, fever, no symptoms, other Allergies: Coded Allergies: No Known Allergies (Unverified , 11/30/16) Subjective afebrile Objective Vital Signs Last 24 Hour Vital Signs Date Time Temp Pulse Resp B/P Pulse Ox O2 Delivery O2 Flow Rate FiO2 12/06/16 12:08 97.3 70 19 123/82 95 Room Air 12/06/16 11:23 69 138/89 12/06/16 10:02 59 16 Room Air 12/06/16 08:00 97.3 73 18 119/77 96 Room Air 12/06/16 04:00 97.5 57 18 127/85 96 Room Air 12/06/16 00:00 97.7 60 18 127/85 95 Room Air 12/05/16 22:13 53 134/80 12/05/16 20:35 53 18 Room Air 12/05/16 20:00 97.7 60 18 134/80 95 Room Air 12/05/16 16:00 97.2 51 20 154/94 98 Room Air Height (Feet): 5 Height (Inches): 4.96 Weight (Pounds): 231 HEENT: anicteric Respiratory/Chest: normal breath sounds Cardiovascular: normal rate Abdomen: soft, non tender Current Medications Medications (Trade) Dose Ordered Sig/Catrachito Route PRN Reason Start Time Stop Time Status Last Admin Dose Admin Acetaminophen (Tylenol) 650 mg Q4H PRN ORAL fever 11/30/16 17:45 12/30/16 17:44 Acetaminophen/ Hydrocodone Bitart ([place] 5/325) 1 tab Q4H PRN ORAL Moderate Pain (Pain Scale 4-6) 6/11/17 18:15 12/09/16 18:14 Albuterol/ Ipratropium (DuoNeb 0.5-3(2.5)mg/3ml) 3 ml Q4H PRN HHN Shortness of Breath 12/01/16 13:45 12/06/16 13:44 Atenolol (Tenormin) 50 mg Q12HR ORAL 12/01/16 21:00 12/31/16 20:59 12/06/16 11:23 Cetylpyridinium Chloride (Cepacol) 1 lozenge Q2H PRN CHERYL For sore throat 12/02/16 13:00 01/01/17 12:59 12/02/16 14:21 Chlorhexidine Gluconate (Wendie-Hex 2%) 1 applic DAILY TOPIC 12/06/16 09:00 01/05/17 08:59 12/06/16 11:47 Clonazepam (KlonoPIN) 1 mg Q12HR ORAL 12/01/16 21:00 12/08/16 20:59 12/06/16 11:24 Dextrose (Dextrose 50%) STAT PRN IV Hypoglycemia 11/30/16 17:45 12/30/16 17:44 Divalproex Sodium (Depakote) 500 mg DAILY ORAL 12/02/16 10:15 01/01/17 10:14 12/06/16 11:23 Divalproex Sodium (Depakote) 1,000 mg BEDTIME ORAL 12/02/16 21:00 01/01/17 20:59 12/05/16 22:12 Ertapenem/Sodium Chloride (INVanz/Sodium Chloride) 55 ml @ 110 mls/hr Q24H IVPB 12/05/16 16:00 12/10/16 15:59 12/05/16 16:46 Heparin Sodium (Porcine) (Heparin 5000 units/ml) 5,000 units EVERY 12 HOURS SUBQ 12/01/16 21:00 12/31/16 20:59 12/06/16 11:25 Insulin Aspart (NovoLOG) BEFORE MEALS AND HS SUBQ 12/01/16 16:30 12/31/16 16:29 12/03/16 12:16 Lacosamide (Vimpat) 200 mg Q12HR ORAL 12/01/16 21:00 12/31/16 20:59 12/06/16 11:22 Levetiracetam (Keppra) 1,000 mg EVERY 12 HOURS ORAL 12/02/16 10:30 01/01/17 10:29 12/06/16 11:24 Metronidazole (Flagyl) 500 mg Q8HR ORAL 11/30/16 23:30 12/07/16 23:29 12/06/16 05:46 Morphine Sulfate (Morphine Sulfate) 2 mg Q4H PRN IVP Severe Pain (Pain Scale 7-10) 12/02/16 18:12 12/07/16 17:44 Mycophenolate Mofetil (Cellcept) 500 mg EVERY 12 HOURS ORAL 12/02/16 10:30 01/01/17 10:29 12/06/16 11:24 Nitroglycerin (Ntg) 0.4 mg Q5MIN PRN SL Prn Chest Pain 11/30/16 13:45 12/31/16 13:44 Ondansetron HCl (Zofran) 4 mg Q6H PRN IVP Nausea & Vomiting 11/30/16 17:45 12/30/16 17:44 Patient Own Medication (Patient's Own Med) 1 ea Q12HR ORAL 12/01/16 22:00 12/31/16 21:59 12/06/16 11:25 Polyethylene Glycol (Miralax) 17 gm DAILYPRN PRN ORAL Constipation 11/30/16 17:45 12/30/16 17:44 Prednisone (predniSONE) 5 mg DAILY ORAL 12/01/16 21:00 12/31/16 20:59 12/06/16 11:22 Sodium Bicarbonate (Sodium Bicarbonate 4%) 1 ml ONCE PRN INJ PICC LINE 12/05/16 14:30 12/06/16 23:59 Tacrolimus 2 mg 2 mg EVERY 12 HOURS ORAL 12/04/16 22:00 01/03/17 21:59 12/06/16 11:24 Temazepam (Restoril) 15 mg HSPRN PRN ORAL Insomnia 12/01/16 20:00 12/08/16 19:59 YANNICK BERRY M.D. Dec 06, 2016 12:24
[2016-12-06] MEDS ORDERED: METRONIDAZOLE500 MG ORAL (14:52)
--- NOTE | 2016-12-06 15:34 | Pulmonology Progress Note ---
Assessment/Plan Problems: (1) Keerthi-rectal abscess (2) ATN (acute tubular necrosis) (3) Status post kidney transplant Assessment/Plan continue IV antibiotics esbl in cultures dc home when is set up check electrolytes invanz for 10 more days Subjective ROS Limited/Unobtainable: No Constitutional: Reports: no symptoms HEENT: Repors: no symptoms Allergies: Coded Allergies: No Known Allergies (Unverified , 11/30/16) Objective Last 24 Hour Vital Signs Date Time Temp Pulse Resp B/P Pulse Ox O2 Delivery O2 Flow Rate FiO2 12/06/16 12:08 97.3 70 19 123/82 95 Room Air 12/06/16 11:23 69 138/89 12/06/16 10:02 59 16 Room Air 12/06/16 08:00 97.3 73 18 119/77 96 Room Air 12/06/16 04:00 97.5 57 18 127/85 96 Room Air 12/06/16 00:00 97.7 60 18 127/85 95 Room Air 12/05/16 22:13 53 134/80 12/05/16 20:35 53 18 Room Air 12/05/16 20:00 97.7 60 18 134/80 95 Room Air 12/05/16 16:00 97.2 51 20 154/94 98 Room Air Intake and Output 12/05/16 12/06/16 19:00 07:00 Intake Total 485 ml 352 ml Output Total 2100 ml Balance 485 ml -1748 ml Intake Oral 320 ml 352 ml IV Total 165 ml Output Urine Total 2100 ml # Voids 4 3 HEENT: normocephalic Respiratory/Chest: chest wall non-tender, normal breath sounds Cardiovascular: normal peripheral pulses, normal rate Abdomen: normal bowel sounds, soft, non tender Extremities: no cyanosis Skin: no rash, no lesions Current Medications Medications (Trade) Dose Ordered Sig/Catrachito Route PRN Reason Start Time Stop Time Status Last Admin Dose Admin Acetaminophen (Tylenol) 650 mg Q4H PRN ORAL fever 11/30/16 17:45 12/30/16 17:44 Acetaminophen/ Hydrocodone Bitart ([place] 5/325) 1 tab Q4H PRN ORAL Moderate Pain (Pain Scale 4-6) 12/02/16 18:15 12/09/16 18:14 Atenolol (Tenormin) 50 mg Q12HR ORAL 12/01/16 21:00 12/31/16 20:59 12/06/16 11:23 Cetylpyridinium Chloride (Cepacol) 1 lozenge Q2H PRN CHERYL For sore throat 12/02/16 13:00 01/01/17 12:59 12/02/16 14:21 Chlorhexidine Gluconate (Wendie-Hex 2%) 1 applic DAILY TOPIC 12/06/16 09:00 01/05/17 08:59 12/06/16 11:47 Clonazepam (KlonoPIN) 1 mg Q12HR ORAL 12/01/16 21:00 12/08/16 20:59 12/06/16 11:24 Dextrose (Dextrose 50%) STAT PRN IV Hypoglycemia 11/30/16 17:45 12/30/16 17:44 Divalproex Sodium (Depakote) 500 mg DAILY ORAL 12/02/16 10:15 01/01/17 10:14 12/06/16 11:23 Divalproex Sodium (Depakote) 1,000 mg BEDTIME ORAL 12/02/16 21:00 01/01/17 20:59 12/05/16 22:12 Ertapenem/Sodium Chloride (INVanz/Sodium Chloride) 55 ml @ 110 mls/hr Q24H IVPB 12/05/16 16:00 12/10/16 15:59 12/05/16 16:46 Heparin Sodium (Porcine) (Heparin 5000 units/ml) 5,000 units EVERY 12 HOURS SUBQ 12/01/16 21:00 12/31/16 20:59 12/06/16 11:25 Insulin Aspart (NovoLOG) BEFORE MEALS AND HS SUBQ 12/01/16 16:30 12/31/16 16:29 12/03/16 12:16 Lacosamide (Vimpat) 200 mg Q12HR ORAL 12/01/16 21:00 12/31/16 20:59 12/06/16 11:22 Levetiracetam (Keppra) 1,000 mg EVERY 12 HOURS ORAL 12/02/16 10:30 01/01/17 10:29 12/06/16 11:24 Metronidazole (Flagyl) 500 mg Q8HR ORAL 11/30/16 23:30 12/07/16 23:29 12/06/16 13:40 Morphine Sulfate (Morphine Sulfate) 2 mg Q4H PRN IVP Severe Pain (Pain Scale 7-10) 12/02/16 18:12 12/07/16 17:44 Mycophenolate Mofetil (Cellcept) 500 mg EVERY 12 HOURS ORAL 12/02/16 10:30 01/01/17 10:29 12/06/16 11:24 Nitroglycerin (Ntg) 0.4 mg Q5MIN PRN SL Prn Chest Pain 11/30/16 13:45 12/31/16 13:44 Ondansetron HCl (Zofran) 4 mg Q6H PRN IVP Nausea & Vomiting 11/30/16 17:45 12/30/16 17:44 Patient Own Medication (Patient's Own Med) 1 ea Q12HR ORAL 12/01/16 22:00 12/31/16 21:59 12/06/16 11:25 Polyethylene Glycol (Miralax) 17 gm DAILYPRN PRN ORAL Constipation 11/30/16 17:45 12/30/16 17:44 Prednisone (predniSONE) 5 mg DAILY ORAL 12/01/16 21:00 12/31/16 20:59 12/06/16 11:22 Sodium Bicarbonate (Sodium Bicarbonate 4%) 1 ml ONCE PRN INJ PICC LINE 12/05/16 14:30 12/06/16 23:59 Tacrolimus 2 mg 2 mg EVERY 12 HOURS ORAL 12/04/16 22:00 01/03/17 21:59 12/06/16 11:24 Temazepam (Restoril) 15 mg HSPRN PRN ORAL Insomnia 12/01/16 20:00 12/08/16 19:59 LETY JO Dec 06, 2016 15:34
[2016-12-06] MEDS: Ertapenem 1 GM in NS 55 ML IVPB SCH (16:36)
[2016-12-06] MEDS ORDERED: Tubing IV Secondary IV ONE (20:44)
[2016-12-06] MEDS ORDERED: NS 275ml ONE (20:44)
--- NOTE | 2016-12-07 09:34 | Diagnostic Imaging Report ---
Indications: Long-term central IV access required for intravenous therapy; intermittent right arm discomfort, history of failed dialysis access in right arm Technique: The procedure indications, risks, and alternatives were explained to the patient who understands and gives consent to proceed. Strict aseptic technique was utilized, including hand washing, use of hat and mask, use of sterile gown and gloves, sterile ultrasound gel and probe cover, prepping of right arm skin with 2% chlorhexidine solution, and application of full-body sterile barrier over this area. Skin and subcutaneous soft tissues were infiltrated with 1% lidocaine and sodium bicarbonate. A small dermatotomy was made, through which the larger of two patent, adequate size right brachial veins was punctured percutaneously under direct sonographic guidance with a 21-gauge needle. Exchange was made over a 0.018 inch guidewire for a 5 Portuguese peel-away sheath. When the guidewire could not be passed through the right subclavian vein, a 5 Portuguese Kumpe catheter was advanced through the sheath over the guidewire into the right subclavian vein, guidewire removed, a dilute nonionic iodine contrast injected through the catheter and digital subtraction images of the right subclavian and brachiocephalic veins, superior vena cava obtained. Exchange was made over a 0.035 inch Bentson guidewire for a 5 Portuguese 23 cm introducer sheath, advanced into the right axillary vein. A 5 Portuguese Kumpe catheter was advanced with the aid of a steerable hydrophilic guidewire across the occluded segment of right subclavian vein into the reconstituted right brachiocephalic vein, then through the superior vena cava and right atrium into the inferior vena cava. Exchange was made through the catheter for the Bentson guidewire, then exchange made for a 6 Portuguese introducer sheath. Occlusive stenosis in the right subclavian vein was not dilated for a duration of 5 minutes with a 10 x 40 mm balloon angioplasty catheter, latter deflated and removed, contrast injected and followup images obtained. 5 Portuguese Kumpe catheter reintroduced over guidewire into the inferior vena cava, exchange made through the catheter for a 0.018 inch guidewire, catheter removed, then an exchange made for a 5 Portuguese peel-away sheath. A Baileyu Power-PICC 5 Portuguese dual lumen central venous catheter was cut to appropriate length, then advanced through the sheath over the guidewire under direct fluoroscopic guidance into the superior vena cava. Guidewire and sheath were removed. Both catheter ports were aspirated, then flushed with heparinized saline. Final image was obtained. Catheter was secured the skin with adhesive dressing. Patient tolerated procedure well without immediate complications. Total fluoroscopy time: 8.4 minutes. Dose-area product: 66 dGy-cm2 Findings: Initial images demonstrate short segment occlusion of central aspect of the right subclavian vein with opacification of multiple prominent collateral venous channels reconstituting the right brachycephalic vein which drains to normal caliber superior vena cava. Images obtained following balloon angioplasty demonstrate reestablishment of uniform in luminal patency of and brisk antegrade flow through the right subclavian vein with marked decrease in collateral venous opacification. Final image demonstrates tip of the central venous catheter at the level of superior vena cava-right atrial junction, 38 cm in from the skin. Both ports aspirate and flush freely. IMPRESSION:? 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 Patency restored following revascularization with balloon angioplasty. Placement of peripherally inserted central venous catheter via right brachial vein through or vasculitis right subclavian vein, working well.
--- NOTE | 2016-12-07 12:32 | Discharge Summary ---
Discharge Summary Hospital Course Date of Admission Nov 30, 2016 at 16:48 Date of Discharge Dec 06, 2016 at 20:45 Admitting Diagnosis JONNY-ANAL ABSESS MAYA Steward is a 41 year old male who was admitted on Nov 30, 2016 at 16:48 for Jonny-Anal Abscess Hospital Course [id number] Discharge Discharge Disposition Patient was discharged to Home with Home Health(06) Discharge Diagnoses: Jenn Garcia NP Dec 07, 2016 12:32
--- NOTE | 2016-12-07 22:00 | Discharge Summary 2 SIG ---
DATE OF ADMISSION: 11/30/2016 DATE OF DISCHARGE: 12/06/2016 CONSULTANTS: 1. Gaurang Moore M.D. 2. Siri Jackson M.D. BRIEF HOSPITAL COURSE: The patient is a 41-year-old male, who has a history of seizure disorder, kidney failure status post kidney transplant 12 years ago and perirectal abscess, presented with possible recurrence of abscess. The patient has had similar infection in the past and had a surgical incision and drainage two years prior. He noted pain and swelling on the left buttock for the past three days with spontaneous drainage and discharge. On evaluation at ED, physical examination reveals an abscess to the left medial buttocks radiating to the anus with white discharge and bleeding. Area is tender to palpation. Laboratories showed leukocytosis WBC of 17. He was diagnosed to have infected [id number] and underwent incision and drainage on 12/01/2016. He was also followed by Infectious Disease specialist. He was started on IV vancomycin and cefepime and Flagyl was added for anaerobic coverage. Postoperatively, he was given pain management and wound care. Wound culture showed growth of gram-negative rods x2. Final culture results showed ESBL E. coli. The patient had a PICC line placed to the right tracheal vein. The patient was discharged home with home health to continue Invanz 1 g IV for 10 more days. FINAL DIAGNOSES: 1. Infected [id number] status post debridement and irrigation of infectant [id number]. 2. Perirectal abscess with Extended-spectrum beta-lactamase Escherichia coli. 3. Chronic kidney disease stage 3. 4. Kidney transplant secondary to polycystic kidney disease on maintenance immunosuppression. Min Spears M.D. I have been assigned to dictate discharge summary on this account and I was not involved in the patient's management. Jenn Garcia N.P. DR: BRANDON JOB#: [id number] CC:
== END 2016-12-06 20:45 | disposition home health service (06) | DRG 226 ==
LOC: EMR 11:38 → 4E 16:48 → EDBEDREQ 17:10
PROC: 0D9Q0ZZ Drainage of Anus, Open Approach (ICD-10-PCS; principal; 2016-12-01 11:00)
PROC: 02HV33Z Insertion of Infusion Device into Superior Vena Cava, Percutaneous Approach (ICD-10-PCS; 2016-12-06)
DX: K61.2 Anorectal abscess (principal); N17.0 Acute kidney failure with tubular necrosis; N18.3 Chronic kidney disease, stage 3 (moderate); I12.9 Hypertensive chronic kidney disease with stage 1 through stage 4 chronic kidney disease, or unspecified chronic kidney disease; Z94.0 Kidney transplant status; B96.20 Unspecified Escherichia coli [E. coli] as the cause of diseases classified elsewhere; Z16.12 Extended spectrum beta lactamase (ESBL) resistance
CPT/HCPCS: 36415; 36569; 74177; 75820; 76937; 80053; 80299; 81003; 82962; 83735; 84100; 85025; 85610; 85730; 87070; 87181; 87205; 93970; 94003; 94150; 94664; J1815; J2250

== ENCOUNTER 2017-01-03 10:34 | Emergency (ER) | payer MEDICAID ==
[~2017-01-03] VITALS: Ht 165.1 cm; Wt 81.6 kg
[~2017-01-03 10:34] MED LIST: CELLCEPT250 MG ORAL; DEPAKOTE250 MG PO; INVANZ1 G1 IM; KEPPRA500 M4 ORAL; KLONOPIN1 MG ORAL; METRONIDAZOLE500 MG ORAL; ONFI20 MG PO; PREDNISONE5 M4 PO; PROGRAF0.5 MG PO; TENORMIN50 MG ORAL; VIMPAT200 MG PO
[2017-01-03 10:52] VITALS: BP_SYST 151; BP_SYST 160; BP_DIAS 104
[2017-01-03] MEDS ORDERED: Azithromycin 500 MG in NS 275 ML IV SCH (11:00)
[2017-01-03] MEDS ORDERED: cefTRIAXone 1 GM in NS 55 ML IV SCH (11:00)
[2017-01-03] MEDS ORDERED: Azithromycin Inj IV ONE (11:06)
[2017-01-03 11:17] LABS: BASOPHILS % (AUTO) 0.4 % (0.0-2.0); EOSINOPHILS % (AUTO) 2.5 % (0.0-3.0); LYMPHOCYTES % (AUTO) 11.2 % (20.0-45.0); MEAN CORPUSCULAR HEMOGLOBIN 31.7 PG (27.0-31.0); MEAN CORPUSCULAR HGB CONC 32.5 G/DL (32.0-36.0); MEAN CORPUSCULAR VOLUME 98 FL (80-99); MEAN PLATELET VOLUME 8.4 FL (6.5-10.1); MONOCYTES % (AUTO) 10.1 % (1.0-10.0); NEUTROPHILS % (AUTO) 75.8 % (45.0-75.0); PLATELET COUNT 138 K/UL (150-450); RED BLOOD COUNT 4.36 M/UL (4.70-6.10); RED CELL DISTRIBUTION WIDTH 11.1 % (11.6-14.8); WHITE BLOOD COUNT 10.1 K/UL (4.8-10.8)
[2017-01-03 11:37] LABS: ALANINE AMINOTRANSFERASE 9 U/L (3-41); ALBUMIN/GLOBULIN RATIO 1.3 (1.0-2.7); ANION GAP 14 (5-15); ASPARTATE AMINO TRANSFERASE 12 U/L (5-40); CARBON DIOXIDE 24 mEQ/L (20-30); CHLORIDE 98 mEQ/L (98-107); CREATININE 1.6 mg/dL (0.7-1.2); GLOMERULAR FILTRATION RATE 48.4 mL/min (>60); HEMOLYSIS 10; POTASSIUM 4.3 mEQ/L (3.4-4.9); SODIUM 136 mEQ/L (135-145)
[2017-01-03 11:40] LABS: TROPONIN I < 0.30 ng/mL (<=0.30)
[2017-01-03 11:44] LABS: REFLEX LACTIC ACID YES OR NO YES
[2017-01-03 11:48] LABS: CKMB < 1.5 ng/mL (< 6.7)
[2017-01-03 12:20] VITALS: BP 139/94
[2017-01-03 12:48] LABS: APPEARANCE,URINE SLIGHTLY CLOUDY; KETONES,URINE 1+ (NEGATIVE); NITRITE,URINE NEGATIVE (NEGATIVE); PH,URINE 6.5 (4.5-8.0); PROTEIN,URINE 3+ (NEGATIVE); UROBILINOGEN,URINE NORMAL MG/DL (0.0-1.0)
[2017-01-03 13:06] LABS: BACTERIA,URINE FEW /HPF; LEUKOCYTE ESTERASE ,URINE 3+ (NEGATIVE); SQUAMOUS EPITHELIAL CELL,UR FEW /LPF (NONE/OCC)
--- NOTE | 2017-01-03 13:30 | Diagnostic Imaging Report ---
Indications: COUGH Technique: Portable AP chest Findings: Comparison: None Suboptimal inspiration limits evaluation. Cardiac silhouette upper limits of normal in size. Prominent vasculature within normal limits. Is less portions of lungs and pleura are grossly clear. Electrical impulse ureters and bilateral chest martin, leads ascending into the lower cervical spine region. IMPRESSION: No evidence of acute cardiopulmonary disease, limited as described. Basal abnormalities may be missed. Upright PA and lateral chest radiographs with better inspiratory effort and optimal technique recommended for more complete evaluation. Bilateral electronic generators as described
[2017-01-03] MEDS ORDERED: Albuterol ud Inhalation HHN ONE (14:15)
[2017-01-03 14:18] VITALS: BP 129/92
--- NOTE | 2017-01-03 15:04 | Emergency Room Report ---
History of Present Illness General Chief Complaint: Fever Source: Patient, Medical Record Present Illness HPI This patient presents with fever, cough and phlegm. The patient was admitted one month ago here at [facility] for her buttock cellulitis. He underwent IV antibiotics and had resolution of his symptoms. He presents today for her 3 days of cough and congestion. Today he developed a fever of 101. He denies abdominal pain or rectal pain. He has no other complaints. Allergies: Coded Allergies: No Known Allergies (Unverified , 11/30/16) Patient History Past Medical History: see triage record, HTN, seizures, other - Kidney transplant 2001. On immunosuppressant medications. Past Surgical History: other - Kidney transplant Social History: Denies: alcohol use, drug use, smoking Reviewed Nursing Documentation: PMH: Agreed, PSxH: Agreed Nursing Documentation-PMH Past Medical History: No History, Except For Hx Hypertension: Yes Hx Cancer: No Hx Gastrointestinal Problems: Yes - Rectal abscess Hx Dialysis: No - Hx of dialysis - no dialysis since kidney transplant Hx Seizures: Yes Review of Systems All Other Systems: negative except mentioned in HPI Physical Exam Vital Signs Date Time Temp Pulse Resp B/P Pulse Ox O2 Delivery O2 Flow Rate FiO2 01/03/17 10:39 101.1 109 16 160/104 95 Room Air Sp02 EP Interpretation: reviewed, normal General Appearance: no apparent distress, alert, GCS 15, non-toxic Head: normocephalic, atraumatic Eyes: bilateral eye PERRL, bilateral eye normal inspection ENT: hearing grossly normal, normal pharynx, no angioedema, normal voice Neck: full range of motion, supple/symm/no masses Respiratory: chest non-tender, no respiratory distress, no retraction, no accessory muscle use, crackles, speaking full sentences, wheezing, expiration Cardiovascular #1: regular rate, rhythm, no edema Gastrointestinal: normal bowel sounds, non tender, soft, non-distended, no guarding, no rebound Rectal: deferred Musculoskeletal: back normal, gait/station normal, normal range of motion, non- tender Neurologic: alert, oriented x3, responsive, motor strength/tone normal, sensory intact, speech normal Psychiatric: judgement/insight normal, memory normal, mood/affect normal, no suicidal/homicidal ideation Skin: normal color, no rash, warm/dry, well hydrated Medical Decision Making Diagnostic Impression: Primary Impression: Fever ER Course This patient presents with fever. His symptoms are primarily respiratory. There is no evidence of pneumonia on chest x-ray. However, on lung exam he does have rhonchi and typically wheezing. I did give the patient broad- spectrum antibiotics IV fluids. He did have a temperature of 101 here in the emergency department. He also has an elevated creatinine at 1.6. This was 1.1 one month ago. This is concerning given the patient has a history of a renal transplant. The patient will need to be admitted for further evaluation and treatment. He was also given albuterol nebulizer here for the respiratory wheezes. This patient may need to be seen by a transplant specialist given the creatinine. Regardless, the patient is admitted for further evaluation and treatment. The patient's primary insurance requested his transfer to another facility that the patient's insurance is capitated to. The patient is stable for transfer. Labs Test 01/03/17 11:00 01/03/17 11:15 01/03/17 11:45 01/03/17 13:45 White Blood Count 10.1 K/UL (4.8-10.8) Red Blood Count 4.36 M/UL (4.70-6.10) Hemoglobin 13.8 G/DL (14.2-18.0) Hematocrit 42.6 % (42.0-52.0) Mean Corpuscular Volume 98 FL (80-99) Mean Corpuscular Hemoglobin 31.7 PG (27.0-31.0) Mean Corpuscular Hemoglobin Concent 32.5 G/DL (32.0-36.0) Red Cell Distribution Width 11.1 % (11.6-14.8) Platelet Count 138 K/UL (150-450) Mean Platelet Volume 8.4 FL (6.5-10.1) Neutrophils (%) (Auto) 75.8 % (45.0-75.0) Lymphocytes (%) (Auto) 11.2 % (20.0-45.0) Monocytes (%) (Auto) 10.1 % (1.0-10.0) Eosinophils (%) (Auto) 2.5 % (0.0-3.0) Basophils (%) (Auto) 0.4 % (0.0-2.0) Sodium Level 136 mEQ/L (135-145) Potassium Level 4.3 mEQ/L (3.4-4.9) Chloride Level 98 mEQ/L (98-107) Carbon Dioxide Level 24 mEQ/L (20-30) Anion Gap 14 (5-15) Blood Urea Nitrogen 16 mg/dL (7-23) Creatinine 1.6 mg/dL (0.7-1.2) Estimat Glomerular Filtration Rate 48.4 mL/min (>60) Glucose Level 108 mg/dL (74-106) Calcium Level 9.0 mg/dL (8.6-10.2) Total Bilirubin 0.5 mg/dL (0.0-1.2) Aspartate Amino Transf (AST/SGOT) 12 U/L (5-40) Alanine Aminotransferase (ALT/SGPT) 9 U/L (3-41) Alkaline Phosphatase 55 U/L (40-129) Total Creatine Kinase 35 U/L (38-174) Creatine Kinase MB < 1.5 ng/mL (< 6.7) Creatine Kinase MB Relative Index Troponin I < 0.30 ng/mL (<=0.30) Total Protein 7.0 g/dL (6.6-8.7) Albumin 4.0 g/dL (3.5-5.2) Globulin 3.0 g/dL Albumin/Globulin Ratio 1.3 (1.0-2.7) Lactic Acid Level 2.00 mmol/L (0.66-2.22) 1.10 mmol/L (0.66-2.22) Urine Color Yellow Urine Appearance Slightly cloudy Urine pH 6.5 (4.5-8.0) Urine Specific [place] 1.010 (1.005-1.035) Urine Protein 3+ (NEGATIVE) Urine Glucose (UA) Negative (NEGATIVE) Urine Ketones 1+ (NEGATIVE) Urine Occult Blood 4+ (NEGATIVE) Urine Nitrite Negative (NEGATIVE) Urine Bilirubin Negative (NEGATIVE) Urine Urobilinogen Normal MG/DL (0.0-1.0) Urine Leukocyte Esterase 3+ (NEGATIVE) Urine RBC 5-10 /HPF (0 - 0) Urine WBC 10-15 /HPF (0 - 0) Urine Squamous Epithelial Cells Few /LPF (NONE/OCC) Urine Bacteria Few /HPF (NONE) EKG Diagnostic Results Rate: tachycardiac Rhythm: other ST Segments: no acute changes Other Impression S.tachycardia Rhythm Strip Diag. Results EP Interpretation: yes Rate: 100's Rhythm: no PVC's, no ectopy, other Other Impression S.tachycardia Chest X-Ray Diagnostic Results Chest X-Ray Diagnostic Results : Chest X-Ray Ordered: Yes # of Views/Limited/Complete: 1 View Indication: Other - cough, fever EP Interpretation: No Interpretation: no consolidation, no effusion, no pneumothorax, no acute cardiopulmonary disease Impression: No acute disease Interpreting ER Provider: Loi Last Vital Signs Date Time Temp Pulse Resp B/P Pulse Ox O2 Delivery O2 Flow Rate FiO2 01/03/17 14:31 81 21 100 Room Air 01/03/17 14:18 101.4 129/92 Disposition: XFER [facility] Condition: Stable Referrals: [facility],REFERRING (PCP) DAVID VALLE D.O. Jan 03, 2017 15:03
[2017-01-03] MEDS ORDERED: Acetaminophen 500mg (ES) tab ORAL ONE (15:15)
[2017-01-03 15:31] VITALS: BP 139/82
[2017-01-03 15:58] VITALS: BP 139/82
== END 2017-01-03 16:01 | disposition short-term general hospital (02) ==
LOC: EMR 11:09
DX: R50.9 Fever, unspecified (principal); R06.2 Wheezing; I10 Essential (primary) hypertension; Z94.0 Kidney transplant status
CPT/HCPCS: 36415; 71010; 80053; 81003; 82550; 82553; 83605; 84484; 85025; 87040; 87086; 93005; 94640; 94664; 96374; 96375; 99285; J0456; J0696; J7050

== ENCOUNTER 2017-01-17 14:47 | Emergency (ER) | payer MEDICAID ==
[~2017-01-17] VITALS: Ht 162.6 cm; Wt 85.3 kg
--- NOTE | 2017-01-17 14:50 | Emergency Room Report ---
History of Present Illness General Chief Complaint: ankle pain Present Illness HPI Patient is a 41-year-old male who presented after a fall. The patient been having ankle pain for the past 2 days. Patient reports having prior history of seizure disorder. Patient stated that he became somewhat off balance because this medications. Patient stated that he takes 4 different medications for seizures which include of Vimpat, Onfi, Depakote, Keppra. Patient was having increased pain and swelling to the ankle. He denies any fever. Allergies: Coded Allergies: No Known Allergies (Unverified , 11/30/16) Patient History Past Medical History: see triage record, seizures Reviewed Nursing Documentation: PMH: Agreed, PSxH: Agreed Nursing Documentation-PMH Hx Hypertension: Yes Hx Cancer: No Hx Gastrointestinal Problems: Yes - Rectal abscess Hx Dialysis: No - Hx of dialysis - no dialysis since kidney transplant Hx Seizures: Yes Review of Systems All Other Systems: negative except mentioned in HPI Physical Exam Sp02 EP Interpretation: reviewed, normal General Appearance: normal inspection, well appearing, no apparent distress, alert, GCS 15 Head: atraumatic ENT: normal ENT inspection, hearing grossly normal, normal voice Neck: normal inspection, full range of motion, supple, no bony tend Respiratory: normal inspection, lungs clear, normal breath sounds, no respiratory distress, no retraction, no wheezing Cardiovascular #1: regular rate, rhythm, no edema Gastrointestinal: normal inspection, normal bowel sounds, non tender, soft, no guarding, no hernia Genitourinary: no CVA tenderness Musculoskeletal: normal inspection, back normal, normal range of motion, swelling - ecchymosis to right ankle Neurologic: normal inspection, alert, responsive, speech normal Psychiatric: normal inspection, judgement/insight normal, mood/affect normal Skin: other - bruising to ankle Medical Decision Making Diagnostic Impression: Primary Impression: Ankle sprain Additional Impression: Renal transplant disorder ER Course Patient presented for ankle pain. Differential diagnosis included was not limited to sprain, fracture, dislocation, cellulitis, vascular insufficiency. X -ray imaging of the ankle was ordered. X-ray imaging previous read by radiology show degenerative changes without fracture. Patient was placed in a posterior splint. The patient is advised to follow up with primary care doctor in 1-2 days. Patient is advised to return if any worsening condition or if any changes in status that are concerning. Status: improved Disposition: HOME, SELF-CARE Condition: Stable Scripts Hydrocodone Bit/Acetaminophen 5-325* (NORCO 5-325 TABLET*) 1 Each Tablet 1 TAB ORAL Q4H Y for For Pain, #14 TAB Prov: Malik eBarden 01/17/17 Malik Bearden Jan 17, 2017 14:50
[2017-01-17] MEDS ORDERED: Norco 5mg/325mg tab ORAL ONE (15:45)
[2017-01-17] MEDS ORDERED: NORCO 5-325 TA1 EAC1 ORAL (16:00)
[2017-01-17 17:00] VITALS: BP 126/87
== END 2017-01-17 17:00 | disposition home or self-care (01) ==
LOC: EMR 15:04
DX: S93.401A Sprain of unspecified ligament of right ankle, initial encounter (principal); W10.9XXA Fall (on) (from) unspecified stairs and steps, initial encounter; Y92.89 Other specified places as the place of occurrence of the external cause; I10 Essential (primary) hypertension; Z94.0 Kidney transplant status
CPT/HCPCS: 99283

== ENCOUNTER 2017-01-22 10:46 | Emergency (ER) | payer MEDICAID ==
[~2017-01-22] VITALS: Ht 162.6 cm; Wt 86.2 kg
[~2017-01-22 10:46] MED LIST changes: +NORCO 5-325 TA1 EAC1 ORAL
[2017-01-22 11:14] VITALS: BP 119/84
[2017-01-22] MEDS ORDERED: NS 1000ml 2,600 ML IVLG ONE (11:30)
[2017-01-22] MEDS ORDERED: Vancomycin 1 GM in NS 275 ML IV ONE (11:30)
[2017-01-22 12:05] LABS: BASOPHILS % (AUTO) 0.9 % (0.0-2.0); EOSINOPHILS % (AUTO) 0.4 % (0.0-3.0); LYMPHOCYTES % (AUTO) 12.3 % (20.0-45.0); MEAN CORPUSCULAR HEMOGLOBIN 31.4 PG (27.0-31.0); MEAN CORPUSCULAR HGB CONC 32.7 G/DL (32.0-36.0); MEAN CORPUSCULAR VOLUME 96 FL (80-99); MONOCYTES % (AUTO) 13.4 % (1.0-10.0); NEUTROPHILS % (AUTO) 72.9 % (45.0-75.0); PLATELET COUNT 261 K/UL (150-450); RED CELL DISTRIBUTION WIDTH 11.4 % (11.6-14.8); WHITE BLOOD COUNT 11.9 K/UL (4.8-10.8)
[2017-01-22] MEDS ORDERED: Vancomycin 1gm inj IVPB ONE (12:12)
[2017-01-22 12:14] LABS: ALANINE AMINOTRANSFERASE 8 U/L (3-41); ANION GAP 13 (5-15); ASPARTATE AMINO TRANSFERASE 16 U/L (5-40); CALCIUM 9.3 mg/dL (8.6-10.2); CARBON DIOXIDE 24 mEQ/L (20-30); CHLORIDE 97 mEQ/L (98-107); GLOMERULAR FILTRATION RATE > 60 mL/min (>60); HEMOLYSIS 66; POTASSIUM 4.6 mEQ/L (3.4-4.9); SODIUM 134 mEQ/L (135-145)
[2017-01-22 13:26] VITALS: BP 141/84
--- NOTE | 2017-01-22 14:42 | Diagnostic Imaging Report ---
Indications: Right foot trauma days ago, now with pain, swelling, discharge Continuous helical CT imaging of the right foot was performed with automatic exposure control on a Siemens sensation [address] scanner. Axial, coronal, sagittal images reconstructed at 3 mm slice thickness. CTDI volume(s): 15 mGy Total DLP: 412 mGy-cm Findings: Comparison: Right ankle radiographs 01/17/17 The subcutaneous soft tissues of the distal leg, ankle, and foot are diffusely swollen and reticulated. Soft tissue swelling is most prominent over the lateral malleolus and hindfoot where multiple clustered, heterogeneously hyperattenuating soft tissue masses are present. No underlying fracture, dislocation, joint space widening, lytic destruction, periosteal reaction, or other acute skeletal changes are identified. IMPRESSION: Diffuse soft tissue swelling, most prominent laterally. Associated subcutaneous soft tissue masses laterally most likely represent hematomas, though abscesses or, less likely, other pathology not entirely excludable. No underlying fracture or dislocation.
[2017-01-22 15:03] VITALS: BP 146/89
[2017-01-22 15:08] VITALS: BP 146/89
--- NOTE | 2017-01-22 15:25 | Emergency Room Report ---
History of Present Illness General Chief Complaint: Wound Recheck/Suture Removal Source: Patient Present Illness HPI This patient suffered blunt trauma to his right foot 5 days ago. This was a metal plate. He was seen here at [facility] and placed in a splint. He was seen in an outpatient clinic today and there was concern that he could have an infection of the foot. He has diffuse swelling and bruising of the area. He denies fever or chills. Denies nausea or vomiting. He has no other complaints. Allergies: Coded Allergies: No Known Allergies (Unverified , 11/30/16) Patient History Past Medical History: see triage record, HTN Past Surgical History: other - Kidney transplant 15 years ago. Social History: Denies: alcohol use, drug use, smoking Reviewed Nursing Documentation: PMH: Agreed, PSxH: Agreed Nursing Documentation-PMH Hx Hypertension: Yes Hx Cancer: No Hx Gastrointestinal Problems: Yes - Rectal abscess Hx Dialysis: No - Kidney transplant Hx Seizures: Yes Review of Systems All Other Systems: negative except mentioned in HPI Physical Exam Vital Signs Date Time Temp Pulse Resp B/P Pulse Ox O2 Delivery O2 Flow Rate FiO2 01/22/17 10:55 97.9 69 18 116/82 98 Room Air Sp02 EP Interpretation: reviewed, normal General Appearance: no apparent distress, alert, GCS 15, non-toxic Head: normocephalic, atraumatic Eyes: bilateral eye PERRL, bilateral eye normal inspection ENT: hearing grossly normal, normal pharynx, no angioedema, normal voice Neck: full range of motion, supple/symm/no masses Respiratory: chest non-tender, lungs clear, normal breath sounds, speaking full sentences Cardiovascular #1: regular rate, rhythm, no edema Gastrointestinal: normal bowel sounds, non tender, soft, non-distended, no guarding, no rebound Rectal: deferred Musculoskeletal: back normal, other - Left foot with diffuse swelling and ecchymosis. There is significant swelling of the right lateral foot. There is also an associated area consistent with where the foot was rubbing against the short leg splint. There is no obvious purulent drainage. The area palpated is soft but not fluctuant. The area is tender to palpation. Neurologic: alert, oriented x3, responsive, motor strength/tone normal, sensory intact, speech normal Psychiatric: judgement/insight normal, memory normal, mood/affect normal, no suicidal/homicidal ideation Skin: warm/dry, well hydrated, other - See MSK exam Medical Decision Making Diagnostic Impression: Primary Impression: Infection of wound hematoma Additional Impression: Traumatic hematoma ER Course The patient has swelling and obvious hematoma of the right foot. There is no dianne purulence, however, I am concerned that the hematoma could be infected. I do not identify an abscess on physical exam, however, I did obtain a CT of the foot to assess for an occult fracture and possibly abscess. CT of the foot showed no fracture. There is an area of soft tissue prominence that appears to be consistent with a hematoma and less likely an abscess. Regardless, the patient was given broad-spectrum antibiotics and will be transferred at the request of the patient's insurance. I discussed the case with the accepting physician and recommended the patient undergo evaluation by an orthopedist. Patient remained stable here in the emergency department was transferred. Labs Test 01/22/17 11:45 White Blood Count 11.9 K/UL (4.8-10.8) Red Blood Count 3.50 M/UL (4.70-6.10) Hemoglobin 11.0 G/DL (14.2-18.0) Hematocrit 33.6 % (42.0-52.0) Mean Corpuscular Volume 96 FL (80-99) Mean Corpuscular Hemoglobin 31.4 PG (27.0-31.0) Mean Corpuscular Hemoglobin Concent 32.7 G/DL (32.0-36.0) Red Cell Distribution Width 11.4 % (11.6-14.8) Platelet Count 261 K/UL (150-450) Mean Platelet Volume 7.0 FL (6.5-10.1) Neutrophils (%) (Auto) 72.9 % (45.0-75.0) Lymphocytes (%) (Auto) 12.3 % (20.0-45.0) Monocytes (%) (Auto) 13.4 % (1.0-10.0) Eosinophils (%) (Auto) 0.4 % (0.0-3.0) Basophils (%) (Auto) 0.9 % (0.0-2.0) Sodium Level 134 mEQ/L (135-145) Potassium Level 4.6 mEQ/L (3.4-4.9) Chloride Level 97 mEQ/L (98-107) Carbon Dioxide Level 24 mEQ/L (20-30) Anion Gap 13 (5-15) Blood Urea Nitrogen 16 mg/dL (7-23) Creatinine 1.0 mg/dL (0.7-1.2) Estimat Glomerular Filtration Rate > 60 mL/min (>60) Glucose Level 104 mg/dL (74-106) Lactic Acid Level 1.10 mmol/L (0.66-2.22) Calcium Level 9.3 mg/dL (8.6-10.2) Total Bilirubin 0.8 mg/dL (0.0-1.2) Aspartate Amino Transf (AST/SGOT) 16 U/L (5-40) Alanine Aminotransferase (ALT/SGPT) 8 U/L (3-41) Alkaline Phosphatase 51 U/L (40-129) Total Protein 7.0 g/dL (6.6-8.7) Albumin 3.5 g/dL (3.5-5.2) Globulin 3.5 g/dL Albumin/Globulin Ratio 1.0 (1.0-2.7) CT/MRI/US Diagnostic Results CT/MRI/US Diagnostic Results : Imaging Test Ordered: CT R. foot Impression Diffuse soft tissue swelling, most prominent laterally. Associated subcutaneous soft tissue masses laterally most likely represent hematomas, no abscess or less likely other pathology not entirely excludable. No underlying fracture. See official report. Last Vital Signs Date Time Temp Pulse Resp B/P Pulse Ox O2 Delivery O2 Flow Rate FiO2 01/22/17 15:08 97.6 61 13 146/89 100 Room Air Disposition: XFER SHT-TRM HOSP Condition: Stable Referrals: [facility],REFERRING (PCP) DAVID VALLE D.O. Jan 22, 2017 15:25
== END 2017-01-22 15:19 | disposition short-term general hospital (02) ==
LOC: EMR 11:30
DX: S90.32XD Contusion of left foot, subsequent encounter (principal); L08.9 Local infection of the skin and subcutaneous tissue, unspecified; I10 Essential (primary) hypertension; Z94.0 Kidney transplant status
CPT/HCPCS: 36415; 73700; 80053; 83605; 85025; 87040; 96360; 96374; 99285; J3370; J7050